=== PATIENT | male | born 1985 | race Caucasian/White ===

== ENCOUNTER 2016-12-31 19:51 | Inpatient (IN) | payer OTHER ==
[~2016-12-31] VITALS: Ht 185.4 cm; Wt 81.6 kg
[2016-12-31 23:47] LABS: *AMPHETAMINE, URINE NEGATIVE (NEGATIVE); *BARBITURATE, URINE NEGATIVE (NEGATIVE); *CANNABINOID, URINE POSITIVE (NEGATIVE); *COCCAINE, URINE NEGATIVE (NEGATIVE); *OPIATE, URINE NEGATIVE (NEGATIVE); *PHENCYCLIDINE SCREEN,URINE NEGATIVE (NEGATIVE)
[2017-01-01 00:11] VITALS: BP 137/106
[2017-01-01] MEDS ORDERED: LOPERAMIDE HCL 2 MG CAPSULE PO PRN ×2 (00:30)
[2017-01-01] MEDS ORDERED: DICYCLOMINE HCL 20 MG TABLET PO PRN (00:30)
[2017-01-01] MEDS ORDERED: ONDANSETRON ODT 4 MG TAB.RAPDIS SL PRN (00:30)
[2017-01-01] MEDS ORDERED: MAG HYDROX/AL HYDROX/SIMETH 30 ML LIQUID UDC PO PRN (00:30)
[2017-01-01] MEDS ORDERED: ACETAMINOPHEN 325 MG TABLET PO PRN (00:30)
[2017-01-01] MEDS ORDERED: LORAZEPAM 2 MG/1 ML VIAL IM PRN (00:30)
[2017-01-01] MEDS ORDERED: LORAZEPAM 1 MG TABLET PO PRN ×2 (00:30)
[2017-01-01] MEDS ORDERED: THIAMINE HCL 200 MG/2 ML VIAL IM ONE (00:30)
[2017-01-01] MEDS ORDERED: MAGNESIUM HYDROXIDE 30 ML LIQUID UDC PO PRN (00:30)
[2017-01-01] MEDS ORDERED: INSU3INS6 SQ (00:48)
[2017-01-01] MEDS ORDERED: VARE1TAB PO (00:48)
[2017-01-01] MEDS ORDERED: VARE1TAB21 PO (00:48)
[2017-01-01] MEDS ORDERED: DEXTROSE 50% 50 ML DISP.SYRIN IV PRN (01:00)
[2017-01-01] MEDS ORDERED: LORAZEPAM 1 MG TABLET ONE (01:05)
[2017-01-01] MEDS ORDERED: THIAMINE HCL 200 MG/2 ML VIAL ONE (01:07)
[2017-01-01 02:06] LABS: ALBUMIN 3.3 g/dL (3.4-5.0); BILIRUBIN,TOTAL 0.4 mg/dL (0.2-1.0); CALCIUM 8.1 mg/dL (8.5-10.1); CREATININE 0.9 mg/dL (0.6-1.3); MAGNESIUM 1.6 mg/dL (1.8-2.4); POTASSIUM 3.6 mmol/L (3.5-5.1); TOTAL PROTEIN, SERUM 6.3 g/dL (6.4-8.2)
[2017-01-01 02:11] LABS: BASOPHILS # (AUTO) 0.1 K/uL (0.0-0.2); BASOPHILS % (AUTO) 1.2 % (0.0-2.0); EOSINOPHILS # (AUTO) 0.1 K/uL (0.0-0.7); EOSINOPHILS % (AUTO) 1.6 % (0.0-7.0); HEMATOCRIT 41.1 % (40.0-50.0); HEMOGLOBIN 14.5 g/dL (14.0-18.0); LYMPHOCYTES # (AUTO) 2.6 K/uL (0.8-4.8); MEAN CORPUSCULAR HEMOGLOBIN 36.3 uug (27.0-31.0); MEAN CORPUSCULAR HGB CONC 35 g/dL (32.0-37.0); MONOCYTES # (AUTO) 0.4 K/uL (0.1-1.30); MONOCYTES % (AUTO) 8.4 % (0.0-11.0); NEUTROPHILS # (AUTO) 2.1 K/uL (1.8-8.9); NEUTROPHILS % (AUTO) 39.8 % (38.5-71.5); PLATELET COUNT (AUTO) 222 K/uL (150-450); RED BLOOD CELL COUNT(AUTO) 3.99 MIL/uL (4.70-6.10); RED CELL DISTRIBUTION WIDTH 12.6 % (11.5-14.5); WHITE BLOOD COUNT (AUTO) 5.3 K/uL (4.0-11.2)
[2017-01-01 02:15] LABS: HIV-1 p24 ANTIGEN NON REACTIVE (NONREACTIVE); HIV-1/2 ANTIBODY NON REACTIVE (NONREACTIVE)
[2017-01-01 02:16] LABS: THYROID STIMULATING HORMONE 0.401 mIU/mL (0.358-3.740)
[2017-01-01 04:26] VITALS: BP 143/99
[2017-01-01] MEDS ORDERED: MAGNESIUM OXIDE 400 MG TABLET PO ONE (06:00)
[2017-01-01] MEDS: CLONIDINE HCL 0.1 MG TABLET PO PRN (08:24)
[2017-01-01] MEDS: BLOOD SUGAR DIAGNOSTIC 1 EACH STRIP VI SCH ×4 (08:24→21:00)
[2017-01-01] MEDS: MULTIVITAMINS,THERAPEUTIC TABLET PO SCH (08:24)
[2017-01-01] MEDS: THIAMINE HCL 100 MG TABLET PO SCH (08:24)
[2017-01-01] MEDS: FOLIC ACID 1 MG TABLET PO SCH (08:24)
[2017-01-01] MEDS: INSULIN REGULAR, HUMAN 300 UNIT/3 ML VIAL SQ PRN ×3 (08:28→16:22)
[2017-01-01 08:30] VITALS: BP 125/93
[2017-01-01 12:00] VITALS: BP 137/96
[2017-01-01] MEDS: LORAZEPAM 1 MG TABLET PO SCH ×3 (12:16→21:58)
[2017-01-01] MEDS: PAROXETINE HCL 20 MG TABLET PO SCH (12:16)
[2017-01-01] MEDS: GABAPENTIN 300 MG CAPSULE PO SCH ×2 (14:46→21:58)
[2017-01-01 16:00] VITALS: BP 127/90
[2017-01-01 20:00] VITALS: BP 147/93
[2017-01-01] MEDS ORDERED: INSULIN DETEMIR 300 UNIT/3 ML CARTRIDGE SQ SCH (21:00)
[2017-01-01] MEDS: HYDROXYZINE PAMOATE 25 MG CAPSULE PO PRN (21:58)
[2017-01-01] MEDS: INSULIN REGULAR, HUMAN 300 UNITS/3 ML VIAL SQ PRN (22:11)
[2017-01-02] VITALS: BP 118/78
[2017-01-02 04:00] VITALS: BP 124/82
[2017-01-02 06:07] LABS: HEPATITIS B CORE AB, IgM Negative (Negative); HEPATITIS B SURFACE AG Negative (Negative)
[2017-01-02 06:57] LABS: ALBUMIN 3.3 g/dL (3.4-5.0); BILIRUBIN,DIRECT 0.3 mg/dL (0.0-0.2); CALCIUM 9.1 mg/dL (8.5-10.1); MAGNESIUM 1.6 mg/dL (1.8-2.4); PHOSPHOROUS 4.2 mg/dL (2.5-4.9); POTASSIUM 4.3 mmol/L (3.5-5.1); TOTAL PROTEIN, SERUM 6.5 g/dL (6.4-8.2)
[2017-01-02 08:00] VITALS: BP 136/94
[2017-01-02] MEDS: INSULIN REGULAR, HUMAN 300 UNIT/3 ML VIAL SQ PRN ×3 (08:11→16:36)
[2017-01-02] MEDS: FOLIC ACID 1 MG TABLET PO SCH (08:13)
[2017-01-02] MEDS: THIAMINE HCL 100 MG TABLET PO SCH (08:13)
[2017-01-02] MEDS: GABAPENTIN 300 MG CAPSULE PO SCH ×3 (08:13→20:57)
[2017-01-02] MEDS: MULTIVITAMINS,THERAPEUTIC TABLET PO SCH (08:13)
[2017-01-02] MEDS: PAROXETINE HCL 20 MG TABLET PO SCH (08:13)
[2017-01-02] MEDS: LORAZEPAM 1 MG TABLET PO SCH ×3 (08:13→20:56)
[2017-01-02] MEDS: BLOOD SUGAR DIAGNOSTIC 1 EACH STRIP VI SCH ×4 (08:22→21:08)
[2017-01-02] MEDS ORDERED: TUBERCULIN,PURIF.PROT.DERIV. 5 TU/0.1 ML TEST ID ONE (09:00)
[2017-01-02 12:17] VITALS: BP 130/92
[2017-01-02] MEDS ORDERED: MAGNESIUM OXIDE 400 MG TABLET PO ONE (14:30)
[2017-01-02 16:59] VITALS: BP 165/101
[2017-01-02] MEDS: CLONIDINE HCL 0.1 MG TABLET PO PRN (17:14)
[2017-01-02] MEDS: HYDROXYZINE PAMOATE 25 MG CAPSULE PO PRN (17:18)
[2017-01-02 20:00] VITALS: BP 113/87
[2017-01-02] MEDS ORDERED: INSULIN DETEMIR 300 UNIT/3 ML CARTRIDGE SQ SCH (21:00)
[2017-01-02] MEDS: INSULIN REGULAR, HUMAN 300 UNITS/3 ML VIAL SQ PRN (21:10)
[2017-01-03] VITALS: BP 120/75
[2017-01-03 04:00] VITALS: BP 130/84
[2017-01-03 08:00] LABS: CALCIUM 9.4 mg/dL (8.5-10.1); CREATININE 1.1 mg/dL (0.6-1.3); MAGNESIUM 1.8 mg/dL (1.8-2.4); POTASSIUM 5.3 mmol/L (3.5-5.1)
[2017-01-03] MEDS: INSULIN REGULAR, HUMAN 300 UNIT/3 ML VIAL SQ PRN ×2 (08:18→17:16)
[2017-01-03] MEDS: FOLIC ACID 1 MG TABLET PO SCH (08:20)
[2017-01-03] MEDS: GABAPENTIN 300 MG CAPSULE PO SCH ×3 (08:21→22:12)
[2017-01-03] MEDS: THIAMINE HCL 100 MG TABLET PO SCH (08:21)
[2017-01-03] MEDS: LORAZEPAM 1 MG TABLET PO SCH ×4 (08:21→22:12)
[2017-01-03] MEDS: MULTIVITAMINS,THERAPEUTIC TABLET PO SCH (08:21)
[2017-01-03] MEDS: PAROXETINE HCL 20 MG TABLET PO SCH (08:21)
[2017-01-03] MEDS: BLOOD SUGAR DIAGNOSTIC 1 EACH STRIP VI SCH ×4 (08:24→21:00)
[2017-01-03 08:33] VITALS: BP 126/87
[2017-01-03] MEDS ORDERED: INSULN ASP PRT/INSULIN ASPART 70/30 1000 UNITS/10 ML VIAL SQ PRN (10:45)
[2017-01-03] MEDS: INSULIN DETEMIR 300 UNIT/3 ML CARTRIDGE SQ SCH ×2 (11:12→22:07)
[2017-01-03] MEDS ORDERED: INSULIN REGULAR, HUMAN 300 UNIT/3 ML VIAL SQ PRN (11:30)
[2017-01-03 12:00] VITALS: BP 133/85
[2017-01-03] MEDS ORDERED: INSULIN REGULAR, HUMAN 300 UNIT/3 ML VIAL SQ ONE (12:05)
[2017-01-03] MEDS ORDERED: DEXTROSE 50% 50 ML DISP.SYRIN IV PRN (12:15)
[2017-01-03] MEDS: CLONIDINE HCL 0.1 MG TABLET PO PRN (14:35)
[2017-01-03] MEDS: HYDROXYZINE PAMOATE 25 MG CAPSULE PO PRN (14:36)
[2017-01-03 16:44] VITALS: BP 137/86
[2017-01-03 20:00] VITALS: BP 115/89
[2017-01-03] MEDS ORDERED: NICOTINE 7 MG/24HR PATCH TD ONE (21:50)
[2017-01-03] MEDS ORDERED: NICOTINE 14 MG/24HR PATCH TD ONE (21:51)
[2017-01-03] MEDS: INSULIN REGULAR, HUMAN 300 UNITS/3 ML VIAL SQ PRN (22:10)
[2017-01-03] MEDS: NICOTINE 14 MG/24HR PATCH TD SCH (22:11)
[2017-01-04 04:00] VITALS: BP 117/78
[2017-01-04] MEDS ORDERED: INSULIN REGULAR, HUMAN 300 UNIT/3 ML VIAL SQ PRN (07:30)
[2017-01-04 08:00] VITALS: BP 123/86
[2017-01-04 08:17] LABS: POTASSIUM 4.5 mmol/L (3.5-5.1)
[2017-01-04] MEDS: INSULIN REGULAR, HUMAN 300 UNIT/3 ML VIAL SQ PRN ×3 (08:35→16:48)
[2017-01-04] MEDS: INSULIN DETEMIR 300 UNIT/3 ML CARTRIDGE SQ SCH (08:37)
[2017-01-04] MEDS: LORAZEPAM 1 MG TABLET PO SCH ×3 (08:37→20:52)
[2017-01-04] MEDS: FOLIC ACID 1 MG TABLET PO SCH (08:38)
[2017-01-04] MEDS: MULTIVITAMINS,THERAPEUTIC TABLET PO SCH (08:38)
[2017-01-04] MEDS: PAROXETINE HCL 20 MG TABLET PO SCH (08:38)
[2017-01-04] MEDS: THIAMINE HCL 100 MG TABLET PO SCH (08:38)
[2017-01-04] MEDS: GABAPENTIN 300 MG CAPSULE PO SCH ×3 (08:38→20:53)
[2017-01-04] MEDS: BLOOD SUGAR DIAGNOSTIC 1 EACH STRIP VI SCH ×4 (08:39→20:45)
[2017-01-04] MEDS: NICOTINE 14 MG/24HR PATCH TD SCH (08:39)
[2017-01-04 12:00] VITALS: BP 132/86
[2017-01-04 16:00] VITALS: BP 140/91
[2017-01-04 20:00] VITALS: BP 143/93
[2017-01-04] MEDS: INSULIN REGULAR, HUMAN 300 UNITS/3 ML VIAL SQ PRN (20:48)
[2017-01-04] MEDS ORDERED: INSULIN DETEMIR 300 UNIT/3 ML CARTRIDGE SQ SCH (21:00)
[2017-01-04] MEDS: diphenhydrAMINE 50 MG CAPSULE PO PRN (22:23)
[2017-01-04] MEDS ORDERED: INSULIN REGULAR, HUMAN 300 UNIT/3 ML VIAL SQ ONE (23:00)
[2017-01-04] MEDS ORDERED: BLOOD SUGAR DIAGNOSTIC 1 EACH STRIP VI ONE (23:00)
[2017-01-05] VITALS: BP 121/75
[2017-01-05 04:00] VITALS: BP 131/83
[2017-01-05 07:47] LABS: ALBUMIN 3.7 g/dL (3.4-5.0); BILIRUBIN,DIRECT 0.1 mg/dL (0.0-0.2); BILIRUBIN,TOTAL 0.4 mg/dL (0.2-1.0); CALCIUM 9.4 mg/dL (8.5-10.1); MAGNESIUM 1.9 mg/dL (1.8-2.4); PHOSPHOROUS 4.8 mg/dL (2.5-4.9); POTASSIUM 4.5 mmol/L (3.5-5.1); TOTAL PROTEIN, SERUM 7.3 g/dL (6.4-8.2)
[2017-01-05] MEDS: BLOOD SUGAR DIAGNOSTIC 1 EACH STRIP VI SCH ×4 (07:49→21:46)
[2017-01-05 08:28] VITALS: BP 135/82
[2017-01-05] MEDS: MULTIVITAMINS,THERAPEUTIC TABLET PO SCH (08:29)
[2017-01-05] MEDS: LORAZEPAM 1 MG TABLET PO SCH ×2 (08:29→21:41)
[2017-01-05] MEDS: GABAPENTIN 300 MG CAPSULE PO SCH ×3 (08:29→21:42)
[2017-01-05] MEDS: THIAMINE HCL 100 MG TABLET PO SCH (08:29)
[2017-01-05] MEDS: PAROXETINE HCL 20 MG TABLET PO SCH (08:29)
[2017-01-05] MEDS: FOLIC ACID 1 MG TABLET PO SCH (08:29)
[2017-01-05] MEDS: INSULIN REGULAR, HUMAN 300 UNIT/3 ML VIAL SQ PRN ×3 (08:35→17:20)
[2017-01-05] MEDS: NICOTINE 14 MG/24HR PATCH TD SCH (08:37)
[2017-01-05] MEDS ORDERED: INSULIN DETEMIR 300 UNIT/3 ML CARTRIDGE SQ SCH (09:00)
[2017-01-05] MEDS: INSULIN REGULAR, HUMAN 300 UNIT/3 ML VIAL SQ SCH ×2 (12:04→17:20)
[2017-01-05] MEDS: HYDROXYZINE PAMOATE 25 MG CAPSULE PO PRN (12:09)
[2017-01-05 12:55] VITALS: BP 149/87
[2017-01-05] MEDS: CLONIDINE HCL 0.1 MG TABLET PO PRN (15:35)
[2017-01-05 17:34] VITALS: BP 136/85
[2017-01-05] MEDS ORDERED: BLOOD SUGAR DIAGNOSTIC 1 EACH STRIP VI ONE (18:50)
[2017-01-05 20:00] VITALS: BP 121/86
[2017-01-05] MEDS: diphenhydrAMINE 50 MG CAPSULE PO PRN (21:43)
[2017-01-05] MEDS: INSULIN REGULAR, HUMAN 300 UNITS/3 ML VIAL SQ PRN (21:50)
[2017-01-05] MEDS: INSULIN DETEMIR 300 UNIT/3 ML CARTRIDGE SQ SCH (21:53)
[2017-01-06] VITALS: BP 124/69
[2017-01-06 04:00] VITALS: BP 116/79
[2017-01-06 08:00] VITALS: BP 116/81
[2017-01-06] MEDS: INSULIN REGULAR, HUMAN 300 UNIT/3 ML VIAL SQ SCH ×3 (08:31→17:29)
[2017-01-06] MEDS: BLOOD SUGAR DIAGNOSTIC 1 EACH STRIP VI SCH ×4 (08:32→21:18)
[2017-01-06] MEDS: INSULIN REGULAR, HUMAN 300 UNIT/3 ML VIAL SQ PRN ×2 (08:34→21:26)
[2017-01-06] MEDS: INSULIN DETEMIR 300 UNIT/3 ML CARTRIDGE SQ SCH ×2 (08:35→21:28)
[2017-01-06] MEDS: NICOTINE 14 MG/24HR PATCH TD SCH (08:36)
[2017-01-06] MEDS: THIAMINE HCL 100 MG TABLET PO SCH (08:36)
[2017-01-06] MEDS: GABAPENTIN 300 MG CAPSULE PO SCH ×3 (08:36→21:15)
[2017-01-06] MEDS: FOLIC ACID 1 MG TABLET PO SCH (08:36)
[2017-01-06] MEDS: PAROXETINE HCL 20 MG TABLET PO SCH (08:36)
[2017-01-06] MEDS: MULTIVITAMINS,THERAPEUTIC TABLET PO SCH (08:36)
[2017-01-06] MEDS ORDERED: BLOOD SUGAR DIAGNOSTIC 1 EACH STRIP VI ONE ×3 (10:30→19:30)
[2017-01-06 12:00] VITALS: BP 137/96
[2017-01-06 16:00] VITALS: BP 133/92
[2017-01-06] MEDS ORDERED: INSULIN REGULAR, HUMAN 300 UNIT/3 ML VIAL SQ PRN ×2 (17:00→21:00)
[2017-01-06] MEDS ORDERED: DEXTROSE 50% 50 ML DISP.SYRIN IV PRN (17:00)
[2017-01-06] MEDS: HYDROXYZINE PAMOATE 25 MG CAPSULE PO PRN (17:55)
[2017-01-06 20:00] VITALS: BP 131/95
[2017-01-06] MEDS ORDERED: INSULIN REGULAR, HUMAN 300 UNIT/3 ML VIAL SQ ONE (20:00)
[2017-01-06] MEDS ORDERED: BLOOD SUGAR DIAGNOSTIC 1 EACH STRIP VI SCH (21:00)
[2017-01-07] VITALS: BP 127/82
[2017-01-07] MEDS ORDERED: INSULIN REGULAR, HUMAN 300 UNIT/3 ML VIAL SQ SCH (07:30)
[2017-01-07 08:00] VITALS: BP_SYST 114; BP_SYST 154; BP_DIAS 76; BP_DIAS 77
[2017-01-07] MEDS: FOLIC ACID 1 MG TABLET PO SCH (08:15)
[2017-01-07] MEDS: MULTIVITAMINS,THERAPEUTIC TABLET PO SCH (08:15)
[2017-01-07] MEDS: GABAPENTIN 300 MG CAPSULE PO SCH ×3 (08:15→20:26)
[2017-01-07] MEDS: THIAMINE HCL 100 MG TABLET PO SCH (08:15)
[2017-01-07] MEDS: PAROXETINE HCL 20 MG TABLET PO SCH (08:15)
[2017-01-07] MEDS: NICOTINE 14 MG/24HR PATCH TD SCH (08:15)
[2017-01-07] MEDS: BLOOD SUGAR DIAGNOSTIC 1 EACH STRIP VI SCH ×7 (08:19→20:25)
[2017-01-07] MEDS: INSULIN REGULAR, HUMAN 300 UNIT/3 ML VIAL SQ SCH ×3 (08:30→16:36)
[2017-01-07] MEDS: INSULIN DETEMIR 300 UNIT/3 ML CARTRIDGE SQ SCH ×2 (08:32→20:47)
[2017-01-07 08:43] LABS: BASOPHILS # (AUTO) 0.1 K/uL (0.0-8.0); BASOPHILS % (AUTO) 0.8 % (0.0-2.0); EOSINOPHILS # (AUTO) 0.3 K/uL (0.0-0.7); EOSINOPHILS % (AUTO) 3.3 % (0.0-7.0); HEMATOCRIT 48.6 % (36.7-47.1); LYMPHOCYTES % (AUTO) 35.5 % (20.5-51.5); MEAN CORPUSCULAR HEMOGLOBIN 36.3 uug (23.8-33.4); MEAN CORPUSCULAR HGB CONC 35 g/dL (32.5-36.3); MEAN CORPUSCULAR VOLUME 103.7 fL (73.0-96.2); MONOCYTES # (AUTO) 0.8 K/uL (2.0-10.0); MONOCYTES % (AUTO) 9.4 % (0.0-11.0); NEUTROPHILS # (AUTO) 4.4 K/uL (1.8-8.9); PLATELET COUNT (AUTO) 272 K/uL (152-348); RED BLOOD CELL COUNT(AUTO) 4.69 MIL/uL (4.06-5.63); RED CELL DISTRIBUTION WIDTH 12.6 % (12.1-16.2); WHITE BLOOD COUNT (AUTO) 8.6 K/uL (3.6-10.2)
[2017-01-07 09:03] LABS: PHOSPHOROUS 5.8 mg/dL (2.5-4.9)
[2017-01-07 12:00] VITALS: BP 134/81
[2017-01-07] MEDS: INSULIN REGULAR, HUMAN 300 UNIT/3 ML VIAL SQ PRN ×3 (13:46→20:48)
[2017-01-07 14:00] LABS: *AMPHETAMINE, URINE NEGATIVE (NEGATIVE); *BARBITURATE, URINE NEGATIVE (NEGATIVE); *CANNABINOID, URINE NEGATIVE (NEGATIVE); *COCCAINE, URINE NEGATIVE (NEGATIVE); *OPIATE, URINE NEGATIVE (NEGATIVE); *PHENCYCLIDINE SCREEN,URINE NEGATIVE (NEGATIVE)
[2017-01-07] MEDS ORDERED: Blood Sugar Diagnostic VI (15:09)
[2017-01-07] MEDS ORDERED: Nicotine TD (15:09)
[2017-01-07] MEDS ORDERED: INSU100V28 SQ (15:09)
[2017-01-07] MEDS ORDERED: Gabapentin PO ×2 (15:09)
[2017-01-07] MEDS ORDERED: Paroxetine Hcl PO (15:09)
[2017-01-07] MEDS ORDERED: INSU100I19 SQ (15:09)
[2017-01-07 16:00] VITALS: BP 148/94
[2017-01-07 20:00] VITALS: BP 150/107
[2017-01-07] MEDS: CLONIDINE HCL 0.1 MG TABLET PO PRN (20:26)
[2017-01-08] VITALS: BP 128/85
[2017-01-08 04:00] VITALS: BP 109/68
[2017-01-08] MEDS: HYDROXYZINE PAMOATE 25 MG CAPSULE PO PRN (04:59)
[2017-01-08] MEDS: BLOOD SUGAR DIAGNOSTIC 1 EACH STRIP VI SCH ×2 (07:40→09:12)
[2017-01-08] MEDS: INSULIN REGULAR, HUMAN 300 UNIT/3 ML VIAL SQ SCH (07:42)
[2017-01-08 08:07] VITALS: BP 121/68
[2017-01-08] MEDS: THIAMINE HCL 100 MG TABLET PO SCH (08:09)
[2017-01-08] MEDS: MULTIVITAMINS,THERAPEUTIC TABLET PO SCH (08:09)
[2017-01-08] MEDS: PAROXETINE HCL 20 MG TABLET PO SCH (08:09)
[2017-01-08] MEDS: NICOTINE 14 MG/24HR PATCH TD SCH (08:09)
[2017-01-08] MEDS: GABAPENTIN 300 MG CAPSULE PO SCH (08:09)
[2017-01-08] MEDS: FOLIC ACID 1 MG TABLET PO SCH (08:09)
[2017-01-08] MEDS: INSULIN DETEMIR 300 UNIT/3 ML CARTRIDGE SQ SCH (09:14)
[2017-01-09 06:06] LABS: *BENZODIAZEPINES Positive (.); *CANNABINOID (THC) Negative (Cutoff=10); *NORDIAZEPAM Negative (Cutoff=300); *OXAZEPAM Negative (Cutoff=300)
== END 2017-01-08 10:05 | disposition other institution (70) | DRG 895 ==
LOC: SRC 22:11
PROVIDERS: ADMIT Internal Medicine; ATTEND Internal Medicine
PROC: HZ2ZZZZ Detoxification Services for Substance Abuse Treatment (ICD-10-PCS; principal; 2016-12-31)
PROC: HZ31ZZZ Individual Counseling for Substance Abuse Treatment, Behavioral (ICD-10-PCS; 2017-01-01)
PROC: HZ41ZZZ Group Counseling for Substance Abuse Treatment, Behavioral (ICD-10-PCS; 2017-01-02)
DX: F10.230 Alcohol dependence with withdrawal, uncomplicated (principal); E87.3 Alkalosis; K70.10 Alcoholic hepatitis without ascites; F13.230 Sedative, hypnotic or anxiolytic dependence with withdrawal, uncomplicated; Y90.3 Blood alcohol level of 60-79 mg/100 ml; J45.20 Mild intermittent asthma, uncomplicated; F41.9 Anxiety disorder, unspecified; E83.42 Hypomagnesemia; Z91.11 Patient's noncompliance with dietary regimen; E10.65 Type 1 diabetes mellitus with hyperglycemia; Z79.4 Long term (current) use of insulin; Z91.19 Patient's noncompliance with other medical treatment and regimen; F17.210 Nicotine dependence, cigarettes, uncomplicated; E86.0 Dehydration
CPT/HCPCS: 36415; 70030-TC; 80307; 80346; 80349; 83690; 83735; 84100; 84443; 85025; 86580; 86705; 86803; 87340; 87806; A9150; G6040-TC; J1815; J3411; Q0163

== ENCOUNTER 2017-04-19 14:12 | Inpatient (IN) | payer OTHER ==
[~2017-04-19] VITALS: Ht 185.4 cm; Wt 86.2 kg
[~2017-04-19 14:12] MED LIST: Blood Sugar Diagnostic VI; Gabapentin PO; INSU100I19 SQ; INSU100V28 SQ; Nicotine TD; Paroxetine Hcl PO
[2017-04-19] MEDS ORDERED: LORAZEPAM 1 MG TABLET PO PRN ×2 (18:45)
[2017-04-19] MEDS ORDERED: MIRALAX 17 GM POWD.PACK PO PRN (18:45)
[2017-04-19] MEDS ORDERED: DEXTROSE 50% 50 ML DISP.SYRIN IV PRN (18:45)
[2017-04-19] MEDS ORDERED: LOPERAMIDE HCL 2 MG CAPSULE PO PRN ×2 (18:45)
[2017-04-19] MEDS ORDERED: DICYCLOMINE HCL 20 MG TABLET PO PRN (18:45)
[2017-04-19] MEDS ORDERED: CLONIDINE HCL 0.1 MG TABLET PO PRN (18:45)
[2017-04-19] MEDS ORDERED: ONDANSETRON ODT 4 MG TAB.RAPDIS SL PRN (18:45)
[2017-04-19] MEDS ORDERED: IBUPROFEN 400 MG TABLET PO PRN (18:45)
[2017-04-19] MEDS ORDERED: THIAMINE HCL 200 MG/2 ML VIAL IM ONE (18:45)
[2017-04-19] MEDS ORDERED: LORAZEPAM 2 MG/1 ML VIAL IM PRN (18:45)
[2017-04-19] MEDS ORDERED: ONDANSETRON 4 MG/2 ML VIAL IM PRN (18:45)
[2017-04-19] MEDS ORDERED: MAG HYDROX/AL HYDROX/SIMETH 30 ML LIQUID UDC PO PRN (18:45)
[2017-04-19 19:11] LABS: BASOPHILS # (AUTO) 0.1 K/uL (0.0-8.0); BASOPHILS % (AUTO) 0.9 % (0.0-2.0); EOSINOPHILS # (AUTO) 0.1 K/uL (0.0-0.7); EOSINOPHILS % (AUTO) 1.3 % (0.0-7.0); HEMATOCRIT 51.1 % (40-50); HEMOGLOBIN 17.3 G/DL (14.0-18.0); LYMPHOCYTES # (AUTO) 3.9 K/UL (0.8-4.8); MEAN CORPUSCULAR HEMOGLOBIN 33.6 UUG (27.0-31.0); MEAN CORPUSCULAR HGB CONC 34 g/dL (32.0-37.0); MEAN CORPUSCULAR VOLUME 99.2 FL (82.0-92.0); MONOCYTES # (AUTO) 1.1 K/UL (0.1-1.30); MONOCYTES % (AUTO) 13.4 % (0.0-11.0); NEUTROPHILS % (AUTO) 36.4 % (38.5-71.5); PLATELET COUNT (AUTO) 317 K/UL (150-450); RED BLOOD CELL COUNT(AUTO) 5.15 MIL/UL (4.7-6.1); WHITE BLOOD COUNT (AUTO) 8.2 K/UL (4.0-11.2)
[2017-04-19 19:27] LABS: *AMPHETAMINE, URINE NEGATIVE (NEGATIVE); *BARBITURATE, URINE NEGATIVE (NEGATIVE); *CANNABINOID, URINE NEGATIVE (NEGATIVE); *COCCAINE, URINE NEGATIVE (NEGATIVE); *OPIATE, URINE NEGATIVE (NEGATIVE); *PHENCYCLIDINE SCREEN,URINE NEGATIVE (NEGATIVE)
[2017-04-19 19:30] LABS: BILIRUBIN,TOTAL 0.3 mg/dL (0.2-1.0); CREATININE 1.1 mg/dL (0.6-1.3); MAGNESIUM 2.1 mg/dL (1.8-2.4); POTASSIUM 3.3 mmol/L (3.5-5.1); TOTAL PROTEIN, SERUM 8.7 g/dL (6.4-8.2)
--- NOTE | 2017-04-19 19:50 | NUR ---
Pre-Admission Note Patient is a 31-year old, male, seen at intake, AAOx4, no SOB and with slight anxiety noted at this time. Discussed with patient admission policies of the unit. Patient is coherent and able to respond to questions appropriately. Pt is ambulatory with steady gait. Vital signs taken and as follows: VC=687/76, P=102, O2 sat on RA=96%, RR=20, T=98.1. Pt verbalized instructions and teachings regarding disposal of narcotic and other controlled home meds, unit protocols such as taking of vital signs Q4H and handling and disposal of contraband. Will continue with admission upon pts arrival on the unit.
[2017-04-19 20:00] VITALS: BP 117/76
--- NOTE | 2017-04-19 20:00 | NUR ---
Admission Note Pt is a 31 year old male admitted on 04/19/2017 for ETOH/benzo dependence, on the unit at 2000. Allergies to PCN and aspirin, denies any history of seizures. Pt was able to provide urine drug screen. Upon admission, CIWA 8, BP =117/76, P=102, O2 sat on RA=96%, RR=20, T=98.1., weight 190 lb, height 6'01". Pts primary care provider is Dr. Coles at [facility] & reports smoking 0.5 pack of cigarettes/daily. Pt denies being hospitalized within the past 30 days. Pt is able to understand and respond to all questions pertaining to his hospitalization. Substance Abuse History is as Follows: 1. Vodka 2 pints/daily, last intake of 1 pint on 04/19/2017, at this rate for 1-2 months. 2. Librium about 5 pills of 25mg/daily, last intake of about 5 pills of 25mg on 04/19/2017, at this rate for 1-2 months. When pt does not use he experiences s/s: "Anxiety, shaky/tremors, n/v, irritations, clammy/sweaty skin, nervousness". Pt reports he relapsed 2 weeks after discharge [facility] on 01/08/2017. Pt longest sober period was for "5 1/2 years " in [id number]. Treatment history: Detox/Rehab for 12 months in [facility] in 2009 [facility] from 12/31/2016 - 01/08/2017 PMH: DM I, HTN, Depression, Anxiety and Asthma. Pt brought medications from home, reconciled. Pt is alert/oriented x4, PERRLA. Pt presents with anxiety, reports chills throughout, skin clammy, visible tremors, noted with sweat, respirations even/unlabored, denies SOB/chest pain, bowel sounds active x4, abdomen soft. Skin is intact, no open wounds noted. Pt denies SI/HI. Education provided, education pamphlets provided and left at bedside, Pt oriented to room and encouraged to notify staff with any concerns. Safety measures in place, call light within reach, side rails up x2, bed locked and in low position. Will continue to monitor.
--- NOTE | 2017-04-19 20:30 | NUR ---
Vitamin B1 Inj refused by pt, risks/benefits explained x3. Pt continues to refuse.
--- NOTE | 2017-04-19 21:00 | NUR ---
Blood Sugar BS 144 Scheduled Levemir 20units administered as ordered. Humulin R 2 units administered per sliding scale as ordered. Safety measures in place, will continue to monitor.
--- NOTE | 2017-04-19 21:05 | NUR ---
Ativan 2mg x1 administered as ordered. Pt presents with anxiety, restlessness, tremors noted, skin flushed/clammy, lightheadedness, irritation. Safety measures in place, will continue to monitor.
[2017-04-19] MEDS: BLOOD SUGAR DIAGNOSTIC 1 EACH STRIP VI SCH (21:09)
[2017-04-19] MEDS: INSULIN DETEMIR 300 UNIT/3 ML CARTRIDGE SQ SCH (21:25)
[2017-04-19] MEDS: INSULIN REGULAR, HUMAN 300 UNITS/3 ML VIAL SQ PRN (21:26)
[2017-04-19] MEDS ORDERED: LORAZEPAM 1 MG TABLET PO ONE (22:00)
[2017-04-19] MEDS ORDERED: POTASSIUM CHLORIDE 20 MEQ TAB.PRT.SR PO ONE (22:00)
[2017-04-19] MEDS ORDERED: POTASSIUM CHLORIDE 20 MEQ TAB.PRT.SR ONE (22:12)
--- NOTE | 2017-04-19 23:00 | NUR ---
PRN Administration CIWA 10 - pt presents with anxiety, agitation/irritation, headache, lightheadedness. Skin clammy/flushed. Ativan 1mg PRN administered. K 3.3 supplemented with K-Dur 40 MEQ. Safety measures in place. Will continue to monitor.
[2017-04-20] VITALS (7 sets, daily range): BP systolic 109–129; BP diastolic 81–91
--- NOTE | 2017-04-20 | NUR ---
PRN Reassessment CIWA 8 BP 112/86, pulse 95, resp 22, SpO2 98% room air, temp 97.9, reports no pain 0/10 Needs met, safety measures in place. Will continue to monitor.
[2017-04-20] MEDS ORDERED: DISU250T7 PO (01:17)
[2017-04-20] MEDS ORDERED: METO50TA3 PO (01:17)
[2017-04-20] MEDS ORDERED: INSU100V28 (01:22)
[2017-04-20] MEDS ORDERED: CHLO25CA22 PO (01:22)
--- NOTE | 2017-04-20 04:00 | NUR ---
Vital Signs BP 128/81, pulse 96, resp 16, SpO2 96% room air, temp 97.6, no pain 0/10 CIWA deferred d/t pt sleeping to assess while pt is awake as ordered. Safety measures in place, will continue to monitor.
--- NOTE | 2017-04-20 07:00 | NUR ---
End of Shift Pt is a 31 year old male admitted for ETOH/Benzo dependence. Pt reported consuming Vodka 2 pints/daily, last intake of 1 pint on 04/19/2017, at this rate for 1-2 months and Librium about 5 pills of 25mg/daily, last intake of about 5 pills of 25mg on 04/19/2017, at this rate for 1-2 months. PMH: DM I, HTN, Depression, Anxiety and Asthma. Reports allergies to PCN and Aspirin, fall/seizure precautions, diabetic diet and full code. During shift, BS 144, Scheduled Levemir 20units administered as ordered with Humulin R 2 units administered per sliding scale as ordered. Ativan 2mg x1 administered as ordered, along with Ativan 1mg PRN for CIWA 10. Score decreased to CIWA 8 at 0000. K 3.3 supplemented with K-Dur 40 MEQ. Vitamin B1 Inj refused by pt, risks/benefits explained x3. Pt slept for 6 hours, intake of 1300 ml PO, voids x2 and stool x0. Safety measures in place, call light within reach, side rails up x2, bed locked and in low position. Endorsed to day shift nurse.
[2017-04-20] MEDS: BLOOD SUGAR DIAGNOSTIC 1 EACH STRIP VI SCH ×4 (07:36→21:32)
[2017-04-20] MEDS: INSULIN REGULAR, HUMAN 300 UNIT/3 ML VIAL SQ PRN ×3 (07:46→17:13)
[2017-04-20] MEDS ORDERED: TUBERCULIN,PURIF.PROT.DERIV. 5 TU/0.1 ML TEST ID ONE (09:00)
[2017-04-20] MEDS: INSULIN DETEMIR 300 UNIT/3 ML CARTRIDGE SQ SCH ×2 (09:21→21:31)
[2017-04-20] MEDS: MULTIVITAMINS,THERAPEUTIC TABLET PO SCH (09:23)
[2017-04-20] MEDS: LORAZEPAM 1 MG TABLET PO SCH ×4 (09:23→21:26)
[2017-04-20] MEDS: FOLIC ACID 1 MG TABLET PO SCH (09:23)
[2017-04-20] MEDS: THIAMINE HCL 100 MG TABLET PO SCH (09:23)
[2017-04-20] MEDS: PAROXETINE HCL 20 MG TABLET PO SCH (09:37)
[2017-04-20] MEDS: GABAPENTIN 300 MG CAPSULE PO SCH ×2 (15:10→21:25)
--- NOTE | 2017-04-20 19:23 | NUR ---
End of Shift Traffic Control Officer provided report to night nurse with no further comments, questions or concerns voiced. Pt is a 31 year old male admitted on 04/19/17 for ETOH and Benzodiazepine medical detoxification. Pt is full code, Allergies to PCN and Aspirin. Pt is on a diabetic diet. With a PMH of DM 1, anxiety, depression, HTN and asthma, no reported history of seizures. Pt placed on universal, fall and seizure precautions. BS were 265, 225 and 190 with coverage provided according to MD order. Skin is intact. Last CIWA of 5 recorded at 1600. Pt did not receive any PRN on this shift. Pt is A/O x4, able to make his needs known. Calm, cooperative and pleasant on approach. Normal affect with congruent mood. No s/s of distress noted. Bed in low position, wheels locked, side rails up x2, with call light within reach.
--- NOTE | 2017-04-20 19:24 | NUR ---
Start of shift note Received report from day shift nurse. Pt is a 31 yo male, A+Ox4, presenting to [facility] for ETOH/Benzo dependence. Pt has Allergies to PCN and Aspirin. Pt is on Fall and Seizure precautions. Pt has HX of DM, HTN, Asthma, Anxiety, and Depression. Pt is on 5 day Ativan taper, tolerated well. No s/s of distress noted at this time. Respirations even and unlabored. Will continue to monitor. Addendum: 04/20/17 at 2025 by IESHA NEWSOME LVN Pt is on Full Code and Diabetic diet.
--- NOTE | 2017-04-20 21:25 | NUR ---
DEBBY Mcpherson Reassessment Medication effective. Pt is resting well in bed. No s/s of ASE/distress noted at this time. Respirations even and unlabored. Will continue to monitor. Addendum: 04/22/17 at 0107 by IESHA NEWSOME LVN Error, incorrect time
[2017-04-20] MEDS: METOPROLOL TARTRATE 50 MG TABLET PO SCH (21:26)
[2017-04-20] MEDS: INSULIN REGULAR, HUMAN 300 UNITS/3 ML VIAL SQ PRN (21:32)
[2017-04-20] MEDS: diphenhydrAMINE 50 MG CAPSULE PO PRN (21:42)
--- NOTE | 2017-04-20 21:42 | NUR ---
PRN Benadryl Pt c/o inability to sleep and requested for PRN Benadryl. Medication given and tolerated well. Will reassess within 1 HR. Will continue to monitor.
--- NOTE | 2017-04-20 22:40 | NUR ---
PRN Benadryl Reassessment Medication effective. Pt is resting well in bed. No s/s of ASE/distress noted at this time. Respirations even and unlabored. Will continue to monitor.
[2017-04-21 00:16] VITALS: BP 110/77
[2017-04-21 04:11] VITALS: BP 109/74
--- NOTE | 2017-04-21 07:00 | NUR ---
End of shift note Pt is a 31 yo male, A+Ox4, presenting to [facility] for ETOH/Benzo dependence. Pt has Allergies to PCN and Aspirin. Pt is on Fall and Seizure precautions. Pt has HX of DM, HTN, Asthma, Anxiety, and Depression. Pt is on 5 day Ativan taper, tolerated well. Pt was given PRN Benadryl @2142. Pt slept for a total of 9 HRS. Last CIWA: 3 @0400. No s/s of distress noted at this time. Respirations even and unlabored. Will endorse to day shift nurse.
[2017-04-21] MEDS: BLOOD SUGAR DIAGNOSTIC 1 EACH STRIP VI SCH ×4 (07:58→20:17)
[2017-04-21 08:00] VITALS: BP 113/82
[2017-04-21 08:02] LABS: CREATININE 0.9 mg/dL (0.6-1.3); MAGNESIUM 1.6 mg/dL (1.8-2.4); PHOSPHOROUS 4.7 mg/dL (2.5-4.9)
--- NOTE | 2017-04-21 08:07 | NUR ---
START OF SHIFT: RECEIVED PT A/O X 4. HE PRESENTS WITH ANXIOUS MOOD AND CONGRUENT AFFECT. HE REPORTS SOME MILD ANXIETY AND STATES DETOX MEDS ARE EFFECTIVE. ATIVAN TAPER IN PROGRESS. CIWA 2. ACCU CHECK DONE BG 224. ENCOURAGED PT TO INCREASE FLUIDS TO ASSIST IN FACILITATING DETOX PROCESS. ENCOURAGED GROUP ATTENDANCE. WILL ADMINISTER SCHEDULED MEDS AND SLIDING SCALE ORDERED. WILL CONTINUE TO MONITOR AND OFFER SAFE AND SUPPORTIVE ENVIRONMENT.
[2017-04-21] MEDS: INSULIN REGULAR, HUMAN 300 UNIT/3 ML VIAL SQ PRN ×3 (08:25→17:14)
[2017-04-21] MEDS: INSULIN DETEMIR 300 UNIT/3 ML CARTRIDGE SQ SCH ×2 (08:25→20:24)
[2017-04-21] MEDS: FOLIC ACID 1 MG TABLET PO SCH (08:29)
[2017-04-21] MEDS: PAROXETINE HCL 20 MG TABLET PO SCH (08:29)
[2017-04-21] MEDS: THIAMINE HCL 100 MG TABLET PO SCH (08:29)
[2017-04-21] MEDS: MULTIVITAMINS,THERAPEUTIC TABLET PO SCH (08:29)
[2017-04-21] MEDS: GABAPENTIN 300 MG CAPSULE PO SCH ×3 (08:29→20:11)
[2017-04-21] MEDS: LORAZEPAM 1 MG TABLET PO SCH ×3 (08:30→20:11)
[2017-04-21] MEDS: METOPROLOL TARTRATE 50 MG TABLET PO SCH ×2 (08:30→20:11)
--- NOTE | 2017-04-21 10:31 | NUR ---
Therapist prompted client about group times. Client stated he would attend all groups.
[2017-04-21 12:00] VITALS: BP 117/78
[2017-04-21] MEDS ORDERED: POTASSIUM CHLORIDE 20 MEQ TAB.PRT.SR PO ONE ×3 (12:30→16:00)
[2017-04-21 13:10] LABS: HEPATITIS B SURFACE AG Negative (Negative)
--- NOTE | 2017-04-21 15:47 | NUR ---
PRN MOTRIN GIVEN FOR RPORTED TOOTHACHE 03/29. WILL MONITOR EFFECTIVENESS.
[2017-04-21 16:00] VITALS: BP 108/69
--- NOTE | 2017-04-21 16:45 | NUR ---
PT STATES MOTRIN WAS MILDLY EFFECTIVE. NEW ORDER FOR LIDOCAINE VISCOUS TO APPLY TOPICALLY.
[2017-04-21] MEDS ORDERED: KETOROLAC TROMETHAMINE 30 MG INJ IM ONE (18:15)
--- NOTE | 2017-04-21 18:38 | NUR ---
END OF SHIFT: PT CONTINUES ON ATIVAN TAPER. ACCU CHECKS AC AND HS. LAST BG 267. 9 UNITS GIVEN ORDERED PER SLIDING SCALE. HE C/O MILD ANXIETY INTERMITTENTLY AND STATES DETOX MEDS ARE EFFECTIVE.LAST CIWA 3. HE C/O TOOTHACHE THIS AFTERNOON TO LOWER RT MOLAR. MOTRIN AND LIDOCAINE VISCUS ONLY MILDLY EFFECTIVE. ONE TIME ORDER FOR TORADOL IM PER MD ADMINISTERED ORDERED.NIGHT NURSE TO MONITOR EFFECTIVENESS OF TORADOL. WILL PASS SHIFT REPORT TO NIGHT NURSE.
[2017-04-21] MEDS ORDERED: IBUPROFEN 400 MG TABLET PO PRN (18:45)
[2017-04-21 20:07] VITALS: BP 119/72
[2017-04-21] MEDS: INSULIN REGULAR, HUMAN 300 UNITS/3 ML VIAL SQ PRN (20:25)
[2017-04-21] MEDS: diphenhydrAMINE 50 MG CAPSULE PO PRN (20:29)
--- NOTE | 2017-04-21 20:29 | NUR ---
PRN Benadryl Pt c/o inability to sleep and requested for PRN Benadryl. Medication given and tolerated well. Will reassess within 1 HR. Will continue to monitor.
[2017-04-21] MEDS: IBUPROFEN 800 MG TABLET PO PRN (23:12)
--- NOTE | 2017-04-21 23:12 | NUR ---
PRN Motrin Pt c/o toothache 03/29 and requested for PRN Motrin. Medication given and tolerated well. Will reassess within 1 HR. Will continue to monitor.
[2017-04-22 00:10] VITALS: BP 125/76
--- NOTE | 2017-04-22 00:10 | NUR ---
PRN Motrin Reassessment Medication moderately effective. Pain reduced to 4/10. No s/s of ASe/distress noted at this time. Respirations even and unlabored. Will continue to monitor.
[2017-04-22] MEDS: ACETAMINOPHEN 325 MG TABLET PO PRN ×2 (01:00→12:17)
--- NOTE | 2017-04-22 01:00 | NUR ---
PRN Tylenol Pt c/o toothache 04/29 and requested for PRN Tylenol. Medication given and tolerated well. Will reassess within 1 HR. Will continue to monitor.
--- NOTE | 2017-04-22 02:00 | NUR ---
PRN Tylenol Reassessment Medication moderately effective. Pain reduced to 4/10. No s/s of ASE/distress noted at this time. Respirations even and unlabored. Will continue to monitor.
[2017-04-22 04:40] VITALS: BP 122/73
--- NOTE | 2017-04-22 07:00 | NUR ---
End of shift note Pt is a 31 yo male, A+Ox4, presenting to [facility] for ETOH/Benzo dependence. Pt has Allergies to PCN and Aspirin. Pt is on Fall and Seizure precautions. Pt has HX of DM, HTN, Asthma, Anxiety, and Depression. Pt is on 5 day Ativan taper, tolerated well. Pt was given PRN Benadryl @2028, PRN Motrin @2312, and PRN Tylenol @0100. Pt slept for a total of 3 HRS. Last CIWA: 3 @0400. No s/s of distress noted at this time. Respirations even and unlabored. Will endorse to day shift nurse.
[2017-04-22] MEDS: BLOOD SUGAR DIAGNOSTIC 1 EACH STRIP VI SCH ×4 (07:38→21:40)
[2017-04-22 08:00] VITALS: BP 118/85
[2017-04-22 08:32] LABS: CREATININE 1.1 mg/dL (0.6-1.3); MAGNESIUM 1.4 mg/dL (1.8-2.4); PHOSPHOROUS 4.8 mg/dL (2.5-4.9); POTASSIUM 4.3 mmol/L (3.5-5.1)
[2017-04-22] MEDS: PAROXETINE HCL 20 MG TABLET PO SCH (08:36)
[2017-04-22] MEDS: LORAZEPAM 1 MG TABLET PO SCH ×4 (08:36→21:26)
[2017-04-22] MEDS: MULTIVITAMINS,THERAPEUTIC TABLET PO SCH (08:36)
[2017-04-22] MEDS: GABAPENTIN 300 MG CAPSULE PO SCH ×3 (08:36→21:26)
[2017-04-22] MEDS: FOLIC ACID 1 MG TABLET PO SCH (08:36)
[2017-04-22] MEDS: THIAMINE HCL 100 MG TABLET PO SCH (08:36)
[2017-04-22] MEDS: INSULIN REGULAR, HUMAN 300 UNIT/3 ML VIAL SQ PRN ×3 (08:38→17:24)
[2017-04-22] MEDS: INSULIN DETEMIR 300 UNIT/3 ML CARTRIDGE SQ SCH ×2 (08:39→21:41)
[2017-04-22] MEDS: METOPROLOL TARTRATE 50 MG TABLET PO SCH ×2 (08:47→21:26)
--- NOTE | 2017-04-22 09:31 | NUR ---
START OF SHIFT Received report from warehouse supervisor 3rd shift nurse. Patient is 31 year old male admitted for medically supervised withdrawal from alcohol and Benzodiazepines. Patient is full code with allergies to penicillin and aspirin. On assessment this AM: CIWA: 2. Denies SOB, chest pain. Vitals signs: 118/85, HR 82, RR18, 97% 02 sat RA, T 98,3, 8/10 tooth pain. Blood sugar this morning was 350, 12 units of sliding scale regular insulin and 20 units of routine detemir insulin given. Mild tremors noted, patient reports mild anxiety. Med compliant with AM meds. On 5-Day Ativan taper. Encouraged patient to hydrate with fluids. Patient was encouraged to attend group meetingstoday. Patient goes out for smoke with escorts. Will continue to monitor patient.
[2017-04-22] MEDS: LIDOCAINE VISCUS 2% 15 ML UDC MM PRN ×2 (09:37→16:53)
--- NOTE | 2017-04-22 09:37 | NUR ---
PRN LIDOCAINE VISCUS AND MOTRIN Patient complains of toothache 04/29. PRN lidocaine viscous and motrin. Will continue to monitor patient.
[2017-04-22] MEDS: IBUPROFEN 800 MG TABLET PO PRN ×2 (09:38→16:52)
--- NOTE | 2017-04-22 10:37 | NUR ---
REASSESSMENT LIDOCAINE VISCOUS AND MOTRIN Patient reports pain remains the same, unresolved. with prn pain meds given. Notified
[2017-04-22 12:00] VITALS: BP 126/85
--- NOTE | 2017-04-22 12:14 | NUR ---
Therapist prompted client about group times. Client stated he attended morning group and will attend afternoon group.
--- NOTE | 2017-04-22 12:17 | NUR ---
PRN TYLENOL Patient complains of toothache 05/30. PRN tylenol given. Will continue to monitor patient.
[2017-04-22] MEDS ORDERED: MAGNESIUM OXIDE 400 MG TABLET PO ONE (12:30)
--- NOTE | 2017-04-22 13:00 | NUR ---
PPD SKIN READ Patient's RFA was read for PPD. Noted to have 12mm induration with erythema. Discussed with Md, chest x-ray ordered.
--- NOTE | 2017-04-22 13:17 | NUR ---
REASSESSMENT PRN TYLENOL Patient reports mildly effective, pain level is 7/10.
[2017-04-22] MEDS ORDERED: ACETAMINOPHEN ES 500 MG TABLET PO PRN (13:30)
[2017-04-22 16:00] VITALS: BP 110/77
--- NOTE | 2017-04-22 16:52 | NUR ---
PRN MOTRIN AND LIDOCAINE VISCOUS Patient complains of 10/10 R molar tooth ache. PRN motrin and lidocaine viscous given. Will continue to monitor patient.
[2017-04-22] MEDS: BOOST GLUCOSE CONTROL 237 ML LIQUID (CHOCOLATE) PO SCH (17:30)
--- NOTE | 2017-04-22 17:52 | NUR ---
REASSESSMENT PRN MOTRIN AND LIDOCAINE VISCOUS Patient reports pain decreased to 8/10.
--- NOTE | 2017-04-22 19:07 | NUR ---
END OF SHIFT Patient is 31 year old male admitted for medically supervised withdrawal from alcohol and Benzodiazepines. Patient is full code with allergies to penicillin and aspirin. On assessment this AM: CIWA: 1. Denies SOB, chest pain. Last vitals signs: 110/77, HR 75, RR18, 98% RA, Temp 98.0, 10/10 pain. On 5-Day Ativan taper. PRN ibuprofen, tylenol and lidocaine viscous given during this shift for toothache. Compliant with routine meds during this shift. Supplemental drink was ordered with meals due to patient's diffuculty with chewing. Blood sugar at dinner time was 266, 9 units of sliding scale regular insulin given. Patient was also educated about not snacking in his room and to be compliant with the current diet regimen as ordered, patient verbalized understanding. Patient has positive PPD, discussed with MD, chest x-ray ordered. Patient tolerating meals without n/v. 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
--- NOTE | 2017-04-22 19:08 | NUR ---
Start of shift note Received report from day shift nurse. Pt is a 31 yo male, A+Ox4, presenting to [facility] for ETOH/Benzo dependence. Pt has Allergies to PCN and Aspirin, is on Full Code status, and on Regular diet. Pt is on Fall and Seizure precautions. Pt has HX of DM, HTN, Asthma, Anxiety, and Depression. Pt is on 5 day Ativan taper, tolerated well. No s/s of distress noted at this time. Respirations even and unlabored. Will continue to monitor.
[2017-04-22 20:02] VITALS: BP 111/81
[2017-04-22] MEDS: FAMOTIDINE 20 MG TABLET PO SCH (21:26)
[2017-04-22] MEDS: INSULIN REGULAR, HUMAN 300 UNITS/3 ML VIAL SQ PRN (21:42)
[2017-04-22] MEDS: diphenhydrAMINE 50 MG CAPSULE PO PRN (21:42)
--- NOTE | 2017-04-22 21:42 | NUR ---
PRN Benadryl and Tylenol Pt c/o toothache and inability to sleep and requested for PRN Tylenol and Benadryl. Medications given and tolerated well. Will reassess within 1 HR. Will continue to monitor.
--- NOTE | 2017-04-22 22:40 | NUR ---
PRN Benadryl and Tylenol Reassessment Medications effective. Pt is resting well in bed. No s/s of ASE/distress noted at this time. Respirations even and unlabored. Will continue to monitor.
[2017-04-23 00:10] VITALS: BP 115/79
[2017-04-23 04:02] VITALS: BP 112/76
--- NOTE | 2017-04-23 07:00 | NUR ---
End of shift note Pt is a 31 yo male, A+Ox4, presenting to [facility] for ETOH/Benzo dependence. Pt has Allergies to PCN and Aspirin. Pt is on Fall and Seizure precautions. Pt has HX of DM, HTN, Asthma, Anxiety, and Depression. Pt is on 5 day Ativan taper, tolerated well. Pt was given PRN Benadryl and Tylenol @2142. Pt slept for a total of 6 HRS. Last CIWA: 2 @0400. No s/s of distress noted at this time. Respirations even and unlabored. Will endorse to day shift nurse.
--- NOTE | 2017-04-23 07:30 | NUR ---
Start of Shift Electrotype Molder received report on 31 year old male pt admitted on 04/19/17 for ETOH and Benzodiazepine detoxification. Pt is full code, with allergies to PCN and Aspirin. PMH of DM 1, anxiety, depression, HTN and asthma. Pt palced on universal, fall and seizure precautions. Last CIWA of 2 recorded at 0400. Pt received Benadryl and Tylenol during NOC, per report. Electrotype Molder encounters pt in bedroom, call and cooperative and able to make needs known. Pleasant on approach. A/O x4. Bed in low position, wheels locked, side rails up x2 and call light within reach. All safety measures in place per policy.
[2017-04-23] MEDS: BLOOD SUGAR DIAGNOSTIC 1 EACH STRIP VI SCH ×4 (07:41→21:12)
[2017-04-23 08:05] LABS: BASOPHILS # (AUTO) 0.1 K/uL (0.0-8.0); EOSINOPHILS # (AUTO) 0.4 K/uL (0.0-0.7); EOSINOPHILS % (AUTO) 4.9 % (0.0-7.0); HEMATOCRIT 42.9 % (40-50); HEMOGLOBIN 14.4 G/DL (14.0-18.0); LYMPHOCYTES # (AUTO) 3.1 K/UL (0.8-4.8); LYMPHOCYTES % (AUTO) 36.5 % (20.5-51.5); MEAN CORPUSCULAR HEMOGLOBIN 33.8 UUG (27.0-31.0); MEAN CORPUSCULAR HGB CONC 34 g/dL (32.0-37.0); MEAN CORPUSCULAR VOLUME 100.4 FL (82.0-92.0); MONOCYTES # (AUTO) 0.7 K/UL (0.1-1.30); MONOCYTES % (AUTO) 8.8 % (0.0-11.0); NEUTROPHILS # (AUTO) 4.1 K/UL (1.8-8.9); NEUTROPHILS % (AUTO) 48.8 % (38.5-71.5); PLATELET COUNT (AUTO) 313 K/UL (150-450); RED BLOOD CELL COUNT(AUTO) 4.27 MIL/UL (4.7-6.1); WHITE BLOOD COUNT (AUTO) 8.4 K/UL (4.0-11.2)
[2017-04-23 08:09] LABS: CREATININE 1.1 mg/dL (0.6-1.3); MAGNESIUM 1.3 mg/dL (1.8-2.4); POTASSIUM 4.6 mmol/L (3.5-5.1)
--- NOTE | 2017-04-23 08:38 | NUR ---
Communication House Rn notified Dr. Olievra of pt's BS of 434. House Rn was ordered to provide coverage according to sliding scale up to 400. Will administer sliding scale, along with scheduled long acting. Will continue to monitor, support and encourage according to plan of care.
[2017-04-23 08:40] VITALS: BP 140/95
[2017-04-23] MEDS: INSULIN REGULAR, HUMAN 300 UNIT/3 ML VIAL SQ PRN ×3 (08:49→17:05)
[2017-04-23] MEDS: INSULIN DETEMIR 300 UNIT/3 ML CARTRIDGE SQ SCH ×2 (08:49→21:12)
[2017-04-23] MEDS: FAMOTIDINE 20 MG TABLET PO SCH ×2 (08:52→21:07)
[2017-04-23] MEDS: LORAZEPAM 1 MG TABLET PO SCH ×3 (08:52→21:07)
[2017-04-23] MEDS: GABAPENTIN 300 MG CAPSULE PO SCH ×3 (08:52→21:07)
[2017-04-23] MEDS: FOLIC ACID 1 MG TABLET PO SCH (08:52)
[2017-04-23] MEDS: PAROXETINE HCL 20 MG TABLET PO SCH (08:58)
[2017-04-23] MEDS: METOPROLOL TARTRATE 50 MG TABLET PO SCH ×2 (08:59→21:07)
[2017-04-23] MEDS: THIAMINE HCL 100 MG TABLET PO SCH (08:59)
[2017-04-23] MEDS: BOOST GLUCOSE CONTROL 237 ML LIQUID (CHOCOLATE) PO SCH ×4 (08:59→17:19)
[2017-04-23] MEDS: MULTIVITAMINS,THERAPEUTIC TABLET PO SCH (08:59)
[2017-04-23 12:45] VITALS: BP 130/88
[2017-04-23 16:57] VITALS: BP 113/83
--- NOTE | 2017-04-23 18:52 | NUR ---
End of Shift Plane Captain provided report on 31 year old male pt admitted on 04/19/17 for ETOH and Benzodiazepine detoxification, with no further comments, questions or concerns voiced. Pt is full code, with allergies to PCN and Aspirin. PMH of DM 1, anxiety, depression, HTN and asthma. Pt placed on universal, fall and seizure precautions. Last CIWA of 2 recorded at 1600. No PRNs on this shift. Pt is calm and cooperative and able to make needs known. Pt has been medication and treatment compliant. Pleasant on approach. A/O x4. Bed in low position, wheels locked, side rails up x2 and call light within reach. All safety measures in place per policy.
--- NOTE | 2017-04-23 19:10 | NUR ---
Start of Shift Patient Received. Patient is in activities room participating in a group meeting. Patient is a 31 year old male admitted on 04/19/17for ETOH and Benzo Dependence under the care of Dr. Olivera. Patient is currently receiving a 5 day Ativan taper. Patient verbalizes allergies to PCN and Asprin, wishes to be full code, following a Diabetic Diet, placed on fall and seizure precautions, wish skin noted intact. Past medical history of DM I, anxiety, depression, HTN, and Asthma. Per endorsement, patient is noted to be compliant with medications and is tolerating plan of care well. Patient is currently on routine accu checks with last noted BS check as 153. Coverage administered accordingly. Last COWS noted to be 2. All needs attended to promptly. Will continue plan of care as ordered.
[2017-04-23 20:53] VITALS: BP 126/83
[2017-04-23] MEDS: MAGNESIUM OXIDE 400 MG TABLET PO SCH (21:07)
[2017-04-23] MEDS: IBUPROFEN 800 MG TABLET PO PRN (21:07)
[2017-04-23] MEDS: INSULIN REGULAR, HUMAN 300 UNITS/3 ML VIAL SQ PRN (21:10)
--- NOTE | 2017-04-23 21:10 | NUR ---
PRN Medication Administration Patient is verbalizing increase pain 7/10 due to toothache. PRN Motrin administered as per orders. Will continue to monitor.
--- NOTE | 2017-04-23 22:00 | NUR ---
PRN Medication Reassessment Patient noted returning from smoking break. Patient is able to verbalize Motrin was able to minimize pain of toothache. PRN Motrin noted to be effective. Will continue to monitor.
[2017-04-24] VITALS: BP 123/78
--- NOTE | 2017-04-24 01:40 | NUR ---
RN note one-time Accu Check order Patient verbalized "I have been peeing a lot" and stated that his blood sugar may be high. Notified Dr. Grubbs and ordered one- time accu-check with moderate coverage of Humulin R based on the moderate sliding scale. Order entered at [facility] and primary care nurse to carry out.
[2017-04-24] MEDS ORDERED: BLOOD SUGAR DIAGNOSTIC 1 EACH STRIP VI ONE (01:45)
[2017-04-24] MEDS: INSULIN REGULAR, HUMAN 300 UNITS/3 ML VIAL SQ PRN ×2 (01:57→21:16)
[2017-04-24] MEDS: diphenhydrAMINE 50 MG CAPSULE PO PRN ×2 (02:10→21:07)
--- NOTE | 2017-04-24 02:10 | NUR ---
PRN Medication Administration Patient is verbalizing inability of falling asleep. PRN Benadryl administered as per order. Will continue to monitor.
--- NOTE | 2017-04-24 02:10 | NUR ---
RN note Extra 10 units of Humulin R Insulin Accu Check done, blood qklri=049 mg/DL. Administered 10 units Humulin R insulin based on moderate sliding scale. Informed Dr. Grubbs and he ordered another dose of Humulin R insulin 10 units. Total units administered is 20.
[2017-04-24] MEDS ORDERED: INSULIN REGULAR, HUMAN 300 UNIT/3 ML VIAL SQ ONE (02:15)
[2017-04-24 04:25] VITALS: BP 116/75
--- NOTE | 2017-04-24 07:16 | NUR ---
End of Shift Patient is in bed sleeping. Breathing even and non labored. No signs of pain or discomfort noted. Patient is a 31 year old male admitted on 04/19/17for ETOH and Benzo Dependence under the care of Dr. Olivera. Patient is currently receiving a 5 day Ativan taper. Patient verbalizes allergies to PCN and Asprin, wishes to be full code, following a Diabetic Diet, placed on fall and seizure precautions, wish skin noted intact. Past medical history of DM I, anxiety, depression, HTN, and Asthma. Patient was given PRN Motrin for pain due to a toothache. Patient also noted to request for blood sugar to be check due to increased urination. Information relayed to MD with orders to check blood sugar and to follow sliding scale for QHS. Blood Sugar noted to be 502 with 10 units given as per orders. MD made aware with an additional dose of 10units to be administered. Patient was also given PRN Benadryl for sleep with medication noted to be effective. Patient noted to sleep a total of 3 hours. All needs attended to promptly. Will endorse to continue plan of care as ordered.
[2017-04-24 08:00] VITALS: BP 109/71
--- NOTE | 2017-04-24 08:05 | NUR ---
START OF SHIFT: RECEIVED PT A/O X 4. BG 102. HE PRESENTS WITH ANXIOUS MOOD AND CONGRUENT AFFECT. HE REPORTS SOME MILD ANXIETY AND STATES THE ATIVAN IS EFFECTIVE. ATIVAN TAPER IN PROGRESS. ENCOURAGED GROUP ATTENDANCE TO IMPROVE COPING SKILLS AND PREVENT RELAPSE. WILL CONTINUE TO MONITOR AND OFFER SAFE AND SUPPORTIVE ENVIRONMENT.
[2017-04-24] MEDS: BLOOD SUGAR DIAGNOSTIC 1 EACH STRIP VI SCH ×4 (08:20→21:10)
[2017-04-24] MEDS: METOPROLOL TARTRATE 50 MG TABLET PO SCH ×2 (08:29→21:07)
[2017-04-24] MEDS: FAMOTIDINE 20 MG TABLET PO SCH ×2 (08:29→21:07)
[2017-04-24] MEDS: BOOST GLUCOSE CONTROL 237 ML LIQUID (CHOCOLATE) PO SCH ×3 (08:29→17:38)
[2017-04-24] MEDS: GABAPENTIN 300 MG CAPSULE PO SCH ×3 (08:30→21:07)
[2017-04-24] MEDS: LORAZEPAM 1 MG TABLET PO SCH ×2 (08:30→21:07)
[2017-04-24] MEDS: THIAMINE HCL 100 MG TABLET PO SCH (08:30)
[2017-04-24] MEDS: MULTIVITAMINS,THERAPEUTIC TABLET PO SCH (08:30)
[2017-04-24] MEDS: PAROXETINE HCL 20 MG TABLET PO SCH (08:30)
[2017-04-24] MEDS: FOLIC ACID 1 MG TABLET PO SCH (08:30)
[2017-04-24] MEDS: INSULIN DETEMIR 300 UNIT/3 ML CARTRIDGE SQ SCH ×2 (08:32→21:17)
[2017-04-24 12:00] VITALS: BP 134/86
[2017-04-24] MEDS: INSULIN REGULAR, HUMAN 300 UNIT/3 ML VIAL SQ PRN ×2 (12:54→17:36)
[2017-04-24] MEDS ORDERED: ACETAMINOPHEN 325 MG TABLET PO PRN (13:30)
[2017-04-24] MEDS ORDERED: INSU100I19 SQ (14:58)
[2017-04-24] MEDS ORDERED: IBUP-1957 PO (14:58)
[2017-04-24] MEDS ORDERED: FAMO20TA8 PO (14:58)
[2017-04-24] MEDS ORDERED: GABA-534 PO ×2 (14:58)
[2017-04-24] MEDS ORDERED: DIPH50CA37 PO (14:58)
[2017-04-24 16:00] VITALS: BP 134/96
[2017-04-24] MEDS ORDERED: INSULIN ASPART 300 UNIT/3 ML CARTRIDGE SQ SCH (16:30)
[2017-04-24] MEDS: INSULIN LISPRO 1000 UNITS/10 ML VIAL(HUMALOG) SQ SCH (17:35)
--- NOTE | 2017-04-24 18:46 | NUR ---
END OF SHIFT: PT CONTINUES ON ATIVAN TAPER. CHANGES MADE PER MD FOR INSULIN ORDERS. LAST BG 284. NO PRNS GIVEN AND HE STATES THE DETOX MEDS ARE EFFECTIVE. PT IS COMPLIANT WITH GROUPS AND MEDICATIONS. WILL PASS SHIFT REPORT TO ONCOMING NIGHT NURSE.
--- NOTE | 2017-04-24 19:10 | NUR ---
Start of Shift Patient Received. Patient is in activities room participating in a group meeting. Patient is a 31 year old male admitted on 04/19/17for ETOH and Benzo Dependence under the care of Dr. Olivera. Patient continues to receive a 5 day Ativan taper. Per endorsement, patient is noted to be compliant with medications and is tolerating plan of care well. Patient is currently on routine accu checks with last noted BS check as 284. Coverage administered accordingly. Last COWS noted to be 1. All needs attended to promptly. Will continue plan of care as ordered.
[2017-04-24 20:57] VITALS: BP 132/82
[2017-04-24] MEDS: IBUPROFEN 800 MG TABLET PO PRN (21:07)
[2017-04-24] MEDS: MAGNESIUM OXIDE 400 MG TABLET PO SCH (21:07)
--- NOTE | 2017-04-24 21:07 | NUR ---
PRN Medication Administration Patient is verbalizing increase pain 7/10 due to toothache and inability of falling asleep. PRN Motrin and Benadryl administered as per orders. Will continue to monitor.
--- NOTE | 2017-04-24 22:15 | NUR ---
PRN Medication Reassessment Patient noted in bed watching TV. Breathing even and non labored. Patient is able to verbalize pain has subsided to a tolerable 3/10. No medication required. Patient also verbalized that he was making his way to bed shortly. PRN Motrin and Benadryl noted to be effective. Will continue to monitor.
--- NOTE | 2017-04-25 | NUR ---
DEBBY MCCANN RE-ASSESSMENT PATIENT IN BED WITH HIS EYES CLOSED. RESPIRATION EVEN AND UNLABORED. SAFETY MEASURES IN PLACE. CALL LIGHT IN REACH. WILL CONTINUE TO MONITOR. Addendum: 04/26/17 at 0645 by ANT BROWN LVN ERROR : CHARTING
[2017-04-25 00:36] VITALS: BP 126/76
[2017-04-25 04:00] VITALS: BP 122/70
--- NOTE | 2017-04-25 07:04 | NUR ---
End of Shift Patient is in bed sleeping. Breathing even and non labored. No signs of pain or discomfort noted. Patient is a 31 year old male admitted on 04/19/17for ETOH and Benzo Dependence under the care of Dr. Olivera. Patient continues to receiving 5 day Ativan taper. Patient was given PRN Motrin for pain due to a toothache. Patient was also given PRN Benadryl for sleep with medication noted to be effective. Patient noted to sleep a total of 6 hours. All needs attended to promptly. Will endorse to continue plan of care as ordered.
[2017-04-25] MEDS: INSULIN LISPRO 1000 UNITS/10 ML VIAL(HUMALOG) SQ SCH ×3 (07:30→16:46)
--- NOTE | 2017-04-25 07:30 | NUR ---
START OF SHIFT NOTE Received report from night nurse, 31 year old male admitted for ETOH/Benzo dependence. Pt reported PMH of DM I, HTN, Depression, Anxiety and Asthma. Per endorsement pt were given Motrin, Benadryl, Last CIWA-2. Received pt in his room in stable condition. Breathing normal no SOB noted respirations even and unlabored. Educated patient on his current plan of care for the day and his medication regimen, and encourage Po fluids as tolerated. All safety measures in place, Call light within reach. Will continue to monitor.
--- NOTE | 2017-04-25 07:30 | NUR ---
ACCU CHECK Pt's blood sugar noted 87mg/dl. MD notified and Humalog/Levemir held as ordered.
[2017-04-25 08:00] VITALS: BP 108/68
[2017-04-25] MEDS: BOOST GLUCOSE CONTROL 237 ML LIQUID (CHOCOLATE) PO SCH ×3 (08:09→16:43)
[2017-04-25] MEDS: BLOOD SUGAR DIAGNOSTIC 1 EACH STRIP VI SCH ×4 (08:16→21:43)
[2017-04-25] MEDS: INSULIN DETEMIR 300 UNIT/3 ML CARTRIDGE SQ SCH ×2 (08:19→21:42)
[2017-04-25] MEDS: FAMOTIDINE 20 MG TABLET PO SCH ×2 (08:20→21:31)
[2017-04-25] MEDS: MULTIVITAMINS,THERAPEUTIC TABLET PO SCH (08:20)
[2017-04-25] MEDS: METOPROLOL TARTRATE 50 MG TABLET PO SCH ×2 (08:20→21:31)
[2017-04-25] MEDS: THIAMINE HCL 100 MG TABLET PO SCH (08:20)
[2017-04-25] MEDS: FOLIC ACID 1 MG TABLET PO SCH (08:20)
[2017-04-25] MEDS: GABAPENTIN 300 MG CAPSULE PO SCH ×3 (08:20→21:31)
[2017-04-25] MEDS: PAROXETINE HCL 20 MG TABLET PO SCH (08:20)
--- NOTE | 2017-04-25 11:30 | NUR ---
BLOOD SUGAR RESULT pt's blood sugar noted 253mg/dl, administered 9 units Humulin-R as per sliding scale on Left Deltoid. Will cont to monitor.
[2017-04-25] MEDS: INSULIN REGULAR, HUMAN 300 UNIT/3 ML VIAL SQ PRN (11:45)
[2017-04-25 12:00] VITALS: BP 129/97
[2017-04-25 12:46] LABS: *AMPHETAMINE, URINE NEGATIVE (NEGATIVE); *BARBITURATE, URINE NEGATIVE (NEGATIVE); *CANNABINOID, URINE NEGATIVE (NEGATIVE); *COCCAINE, URINE NEGATIVE (NEGATIVE); *OPIATE, URINE NEGATIVE (NEGATIVE); *PHENCYCLIDINE SCREEN,URINE NEGATIVE (NEGATIVE)
[2017-04-25 16:00] VITALS: BP 135/90
--- NOTE | 2017-04-25 16:30 | NUR ---
ACCU CHECK Pt's blood sugar noted 187mg/dl. Administered 3 units of Humulin- R insulin per sliding scale as ordered.
--- NOTE | 2017-04-25 19:13 | NUR ---
END OF SHIFT NOTE Gave report to night nurse, 31 year old male admitted for ETOH/Benzo dependence. Pt reported PMH of DM I, HTN, Depression, Anxiety and Asthma. Pt completed his 5 days Ativan taper tolerated well. Pt did not receive any PRN medication. Pt scheduled for discharge in AM, urine drug screen completed and placed in the chart. Skin intact warm and dry to touch. Pt attended some groups and activities. Pt remained compliant with care. Vital signs remained WNL. All safety measures in place, Call light within reach. Pt endorsed to night nurse in stable condition.
[2017-04-25 20:00] VITALS: BP 134/89
--- NOTE | 2017-04-25 20:00 | NUR ---
START OF SHIFT NOTE PATIENT ALERT AND ORIENTED X 4. RESPIRATION EVEN AND UNLABORED. PATIENT REPORTS ANXIOUS BUT HE'S ALRIGHT. PATIENT STATES HES LEAVING TOMORROW. RECEIVED REPORT FROM DAY SHIFT NURSE. PATIENT IS A 31 YEAR OLD MALE, ADMITTED FOR ETOH/BENZO DEPENDENCE. PATIENTS DRUG OF CHOICE ARE LIBRIUM AND VODKA. PATIENT COMPLETED 5 DAYS ATIVAN TAPER. PATIENT IS MEDICALLY CLEARED TO BE DISCHARGE TOMORROW. PATIENT IS ALLERGIC TO PENICILLIN. PATIENT IS ON DIABETIC DIET. PATIENT REPORTS PMH OF DM I, ANXIETY, DEPRESSION. HTN AND ASTHMA. NO SEIZURE HISTORY. SKIN INTACT. PER DAY SHIFT NURSE. PATIENT IS NON-COMPLIANT WITH THE DIET. LAST CIWA 1. ON FALL/SEIZURE PRECAUTION. SAFETY MEASURES IN PLACE. CALL LIGHT IN REACH. WILL CONTINUE TO MONITOR.
[2017-04-25] MEDS: MAGNESIUM OXIDE 400 MG TABLET PO SCH (21:31)
[2017-04-25] MEDS: diphenhydrAMINE 50 MG CAPSULE PO PRN (21:37)
--- NOTE | 2017-04-25 21:37 | NUR ---
PRN BENADRYL ADMINISTRATION PATIENT REQUESTS FOR SLEEP AID. PRN BENADRYL GIVEN. WILL MONITOR FOR EFFECTIVENESS.
[2017-04-25] MEDS: INSULIN REGULAR, HUMAN 300 UNITS/3 ML VIAL SQ PRN (21:46)
[2017-04-26] VITALS: BP 152/92
--- NOTE | 2017-04-26 | NUR ---
DEBBY MCCANN RE-ASSESSMENT PATIENT IN BED WITH HIS EYES CLOSED. RESPIRATION EVEN AND UNLABORED. SAFETY MEASURES IN PLACE. CALL LIGHT IN REACH. WILL CONTINUE TO MONITOR.
--- NOTE | 2017-04-26 04:00 | NUR ---
CIWA/VS PATIENT ASLEEP. CIWA UNABLE TO ASSESS. NO S/S OF DISTRESS. RESPIRATION EVEN AND UNLABORED. SAFETY MEASURES IN PLACE. CALL LIGHT IN REACH. WILL CONTINUE TO MONITOR
--- NOTE | 2017-04-26 07:00 | NUR ---
Start of Shift Endorsement received from nightshift nurse. Pt is a 19 y/o male admitted for Heroin dependence. Pt has been placed on a 4 day Subutex taper. PT is tolerating the taper and mildly withdrawing AEB COWS 3. Pt reports sleeping 6 hours.Pt received PRN Motrin and Seroquel. VS WNL. Full Code. . Pt is in STABLE condition at this time. Remains compliant with medication and diet regimen. All needs have been met, All safety measures in place per hospital policy. Bed in lowest position, side rails up x2, call-light within reach. Will continue to monitor.
--- NOTE | 2017-04-26 07:19 | NUR ---
END OF SHIFT NOTE PATIENT REMAIN ALERT AND ORIENTED X 4. RESPIRATION EVEN AND UNLABORED. PATIENT IS A 31 YEAR OLD MALE, ADMITTED FOR ETOH/BENZO DEPENDENCE. PATIENTS DRUG OF CHOICE ARE LIBRIUM AND VODKA. PATIENT COMPLETED 5 DAYS ATIVAN TAPER. PATIENT IS MEDICALLY CLEARED TO BE DISCHARGE TODAY. PATIENT IS ALLERGIC TO PENICILLIN. PATIENT IS ON DIABETIC DIET. NO SEIZURE HISTORY. SKIN INTACT. ACCUCHECK DONE @2100, BLOOD SUGAR 265 , INSULIN GIVEN ORDERED . ON FALL/SEIZURE PRECAUTION. SAFETY MEASURES IN PLACE. CALL LIGHT IN REACH. WILL CONTINUE TO MONITOR. SLEPT 7 HOURS. FLUID INTAKE 1,451 ML. VOIDED X 3. NO BM. LAST CIWA 0 .
[2017-04-26] MEDS: BLOOD SUGAR DIAGNOSTIC 1 EACH STRIP VI SCH (07:59)
[2017-04-26 08:00] VITALS: BP 126/82
[2017-04-26] MEDS: INSULIN LISPRO 1000 UNITS/10 ML VIAL(HUMALOG) SQ SCH (08:01)
[2017-04-26] MEDS: INSULIN REGULAR, HUMAN 300 UNIT/3 ML VIAL SQ PRN (08:02)
[2017-04-26 08:03] VITALS: BP 126/82
[2017-04-26] MEDS: FOLIC ACID 1 MG TABLET PO SCH (08:03)
[2017-04-26] MEDS: METOPROLOL TARTRATE 50 MG TABLET PO SCH (08:03)
[2017-04-26] MEDS: FAMOTIDINE 20 MG TABLET PO SCH (08:03)
[2017-04-26] MEDS: PAROXETINE HCL 20 MG TABLET PO SCH (08:03)
[2017-04-26] MEDS: GABAPENTIN 300 MG CAPSULE PO SCH (08:04)
[2017-04-26] MEDS: INSULIN DETEMIR 300 UNIT/3 ML CARTRIDGE SQ SCH (08:05)
[2017-04-26] MEDS: MULTIVITAMINS,THERAPEUTIC TABLET PO SCH (08:05)
[2017-04-26] MEDS: BOOST GLUCOSE CONTROL 237 ML LIQUID (CHOCOLATE) PO SCH (08:06)
[2017-04-26] MEDS: THIAMINE HCL 100 MG TABLET PO SCH (08:06)
--- NOTE | 2017-04-26 09:37 | NUR ---
Discharge note PT has been discharged from [facility] to [facility]. PT is in Stable condition, VS WNL. Denies suicidal and homicidal ideations at this time. . All documentation has been completed, paperwork signed and dated. Pt left with all of his belongings, medications and prescriptions. Pt has been discharged from [facility] on 04/26/2017 at 0937. has been Notified.
== END 2017-04-26 09:37 | disposition other institution (70) | DRG 895 ==
LOC: SRC 18:34
PROVIDERS: ADMIT Internal Medicine; ATTEND Internal Medicine
PROC: HZ2ZZZZ Detoxification Services for Substance Abuse Treatment (ICD-10-PCS; principal; 2017-04-19)
PROC: HZ41ZZZ Group Counseling for Substance Abuse Treatment, Behavioral (ICD-10-PCS; 2017-04-20)
PROC: HZ31ZZZ Individual Counseling for Substance Abuse Treatment, Behavioral (ICD-10-PCS; 2017-04-21)
DX: F10.230 Alcohol dependence with withdrawal, uncomplicated (principal); F13.20 Sedative, hypnotic or anxiolytic dependence, uncomplicated; E87.3 Alkalosis; F13.230 Sedative, hypnotic or anxiolytic dependence with withdrawal, uncomplicated; Y90.8 Blood alcohol level of 240 mg/100 ml or more; F11.21 Opioid dependence, in remission; J45.20 Mild intermittent asthma, uncomplicated; F41.9 Anxiety disorder, unspecified; Z88.6 Allergy status to analgesic agent; Z79.4 Long term (current) use of insulin; Z88.0 Allergy status to penicillin; E87.6 Hypokalemia; E83.42 Hypomagnesemia; Z91.11 Patient's noncompliance with dietary regimen; E10.65 Type 1 diabetes mellitus with hyperglycemia; K08.89 Other specified disorders of teeth and supporting structures; F32.9 Major depressive disorder, single episode, unspecified; F17.210 Nicotine dependence, cigarettes, uncomplicated; E86.0 Dehydration
CPT/HCPCS: 36415; 70030-TC; 71010; 80307; 80346; 83690; 83735; 84100; 85025; 86592; 86705; 86803; 87340; 87806; A4663; G0480; J1815; J1885; Q0163

== ENCOUNTER 2017-06-22 13:23 | Inpatient (IN) | payer OTHER ==
[~2017-06-22] VITALS: Ht 185.4 cm; Wt 81.6 kg
[~2017-06-22 13:23] MED LIST changes: +DIPH50CA37 PO; +DISU250T7 PO; +FAMO20TA8 PO; +GABA-534 PO; +IBUP-1957 PO; +METO50TA3 PO
--- NOTE | 2017-06-22 13:55 | NUR ---
Intake assessment Pt seen down in intake, pt has already been seen by Dr Grubbs and cleared to come up to the unit. BP is 127/87 HR 119 SPO2 96% on RA, pt noted to be flushed, dry heaving, trembling, and obviously anxious. Dr Grubbs is aware and states that pt can come to unit and to start IVF and administer medications as ordered. Will continue to monitor pt and place pt on a 1:1 upon arrival to unit.
[2017-06-22] MEDS ORDERED: diphenhydrAMINE 50 MG CAPSULE PO PRN (14:00)
[2017-06-22] MEDS ORDERED: INSULIN REGULAR, HUMAN 300 UNIT/3 ML VIAL SQ PRN ×2 (14:00→18:00)
[2017-06-22] MEDS ORDERED: THIAMINE HCL 200 MG/2 ML VIAL IM ONE (14:00)
[2017-06-22] MEDS ORDERED: ACETAMINOPHEN 325 MG TABLET PO PRN (14:00)
[2017-06-22] MEDS ORDERED: MIRALAX 17 GM POWD.PACK PO PRN (14:00)
[2017-06-22] MEDS ORDERED: MAG HYDROX/AL HYDROX/SIMETH 30 ML LIQUID UDC PO PRN (14:00)
[2017-06-22] MEDS ORDERED: INSULIN REGULAR, HUMAN 300 UNITS/3 ML VIAL SQ PRN (14:00)
[2017-06-22] MEDS ORDERED: DEXTROSE 50% 50 ML DISP.SYRIN IV PRN ×3 (14:00→18:00)
[2017-06-22] MEDS ORDERED: MAGNESIUM HYDROXIDE 30 ML LIQUID UDC PO PRN (14:00)
[2017-06-22] MEDS ORDERED: BLOOD SUGAR DIAGNOSTIC 1 EACH STRIP VI SCH ×2 (14:00→18:00)
[2017-06-22] MEDS ORDERED: LOPERAMIDE HCL 2 MG CAPSULE PO PRN ×2 (14:00)
[2017-06-22] MEDS ORDERED: LORAZEPAM 1 MG TABLET PO PRN (14:00)
[2017-06-22] MEDS ORDERED: LORAZEPAM 2 MG/1 ML VIAL IM PRN (14:00)
--- NOTE | 2017-06-22 14:00 | NUR ---
Admission note Pt was admitted for ETOH dependence. Pt has a PMHx of anxiety, asthma, DM type I, depression and HTN. Pt arrived intoxicated and is not a reliable historian. Pt VS upon admission: BP: 127/87, HR 119, T: 98.2, SpO2 96% on RA, R: 19. Pt is 6'1, weighs 180 pounds. Reports an allergy to PCN and aspirin. Pt skin check completed by [employer], no substances found, pt skin is intact. Pt reports that his PCP is Dr Coles. Pt CIWA upon admission is 20, Dr Grubbs is aware, and will place orders. Will administer PRN medications when available. Pt placed on 1:[address] Grubbs for safety. [address] Grubbs stated he would order IV fluids, 22G peripheral IV placed in right forearm x 1 attempt, pt tolerated well. Pt accu check upon admission: 239, Dr Grubbs aware, NNO. Pt reports substance use as follows: ETOH- vodka- 2 pints daily x 1 month, last drank 1 pint prior to admission. Urine provided. All needs addressed at this time. Will continue to monitor pt.
[2017-06-22] MEDS ORDERED: LORAZEPAM 1 MG TABLET PO ONE ×2 (14:45→21:00)
[2017-06-22] MEDS: IV NS 1000 ML 1,000 ML IV PRN ×2 (14:54→21:23)
[2017-06-22 14:55] VITALS: BP 127/83
--- NOTE | 2017-06-22 14:55 | NUR ---
PRN administration After administration of onetime ativan PO order, pt immediately vomiting x 4 times. Zofran IM administered, Dr Grubbs notified, stated he would place orders. Pt continues on 1:1, IVF initiated.
[2017-06-22] MEDS: ONDANSETRON 4 MG/2 ML VIAL IM PRN ×2 (15:00→23:27)
[2017-06-22 15:12] LABS: *AMPHETAMINE, URINE NEGATIVE (NEGATIVE); *BARBITURATE, URINE NEGATIVE (NEGATIVE); *CANNABINOID, URINE NEGATIVE (NEGATIVE); *COCCAINE, URINE NEGATIVE (NEGATIVE); *OPIATE, URINE NEGATIVE (NEGATIVE); *PHENCYCLIDINE SCREEN,URINE NEGATIVE (NEGATIVE)
[2017-06-22] MEDS ORDERED: LORAZEPAM 2 MG/1 ML VIAL IV ONE ×3 (15:15→21:00)
--- NOTE | 2017-06-22 15:30 | NUR ---
Reassessment Pt states that his nausea has improved, no more vomiting noted. Will continue to monitor pt.
[2017-06-22] MEDS: SERTRALINE HCL 100 MG TABLET PO SCH (15:38)
[2017-06-22 16:00] VITALS: BP 125/73
[2017-06-22 16:04] LABS: BILIRUBIN,TOTAL 0.9 mg/dL (0.2-1.0); CREATININE 0.9 mg/dL (0.6-1.3); MAGNESIUM 1.9 mg/dL (1.8-2.4); POTASSIUM 4.3 mmol/L (3.5-5.1); TOTAL PROTEIN, SERUM 7.6 g/dL (6.4-8.2)
[2017-06-22 16:05] LABS: BASOPHILS % (AUTO) 0.3 % (0.0-2.0); HEMATOCRIT 51.7 % (40-50); HEMOGLOBIN 17.4 G/DL (14.0-18.0); LYMPHOCYTES % (AUTO) 21.5 % (20.5-51.5); MEAN CORPUSCULAR HEMOGLOBIN 33.7 UUG (27.0-31.0); MEAN CORPUSCULAR HGB CONC 34 g/dL (32.0-37.0); MONOCYTES # (AUTO) 0.5 K/UL (0.1-1.30); MONOCYTES % (AUTO) 5.3 % (0.0-11.0); NEUTROPHILS % (AUTO) 72.9 % (38.5-71.5); PLATELET COUNT (AUTO) 282 K/UL (150-450); RED BLOOD CELL COUNT(AUTO) 5.17 MIL/UL (4.7-6.1); WHITE BLOOD COUNT (AUTO) 9.5 K/UL (4.0-11.2)
[2017-06-22] MEDS ORDERED: IV NS 1000 ML 1,000 ML IV ONE (17:30)
--- NOTE | 2017-06-22 18:00 | NUR ---
Late Accu check Pt accu check and insulin administered late d/t pt vomiting. Dr Grubbs is aware. Dr Grubbs said ok to give insulin when pt is not having oral intake of food.
[2017-06-22] MEDS: INSULIN REGULAR, HUMAN 300 UNIT/3 ML VIAL SQ PRN (18:08)
[2017-06-22] MEDS: BLOOD SUGAR DIAGNOSTIC 1 EACH STRIP VI SCH ×2 (18:08→20:39)
--- NOTE | 2017-06-22 19:13 | NUR ---
End of shift note Pt was admitted for ETOH dependence. Pt has a PMHx of anxiety, DM type I, last Accu check of 204, asthma and depression. Pt is on PRN medication to manage his s/s of withdrawal. Pt is currently sleeping in bed. Pt required 2 IV doses of PRN ativan IV d/t his CIWA scores of 20 then 17 and two vomiting episodes with multiple emesis each. Pt is on a 1:1 sitter for safety. Pt IVF infusing for a one time bolus, then rate to be set at 125ml/hr. All needs addressed at this time. SBAR report endorsed.
--- NOTE | 2017-06-22 19:30 | NUR ---
START OF SHIFT Pt is a 32 y/o male admitted on 06/22/17 for ETOH withdrawal. Pt was dependent on vodka 2-3 pints daily for one month. Pt is full code, allergic to penicillins and aspirin, NPO except medications, and fall and seizure precautions. Pt has hx of seizure r/t DM, not withdrawal. Pt reports PMH of DM type 1, HTN, asthma, anxiety, depression. Pt is on 1:1 with sitter d/t fall precautions. Pt will start a 5 day Ativan taper on 06/23/17. Pt has IVF NS at 125 mL/hour. Upon assessment pt was laying in bed and presents with moderate anxiety, mild to moderate nausea, tremors, sweats, moderate flushing, hiccups, slight irritation, restlessness, photosensitivity, and headache. Last vomit episode was approximately one hour ago per pt. Denies diarrhea. Respirations 16, even and unlabored. Denies chest pain or SOB. Medications due. Safety measures in place. Call light within reach. Will continue to monitor.
[2017-06-22] MEDS: ONDANSETRON ODT 4 MG TAB.RAPDIS SL PRN (19:32)
--- NOTE | 2017-06-22 19:32 | NUR ---
PRN ZOFRAN 4 MG ADMINISTRATION Pt complains of moderate nausea. Denies vomiting. Safety measures in place. Call light within reach. Will continue to monitor. Addendum: 06/23/17 at 0153 by ROSA TANNER RN Has 1:1 sitter in room
[2017-06-22 20:00] VITALS: BP 126/75
--- NOTE | 2017-06-22 20:02 | NUR ---
DEBBY ZOFRAN 4 MG REASSESSMENT Pt reports improvement in nausea, but has not ceased. Denies vomiting. Safety measures in place. Call light within reach. Will continue to monitor. Addendum: 06/23/17 at 0153 by ROSA TANNER RN Has 1:1 sitter in room
--- NOTE | 2017-06-22 20:21 | NUR ---
x1 ATIVAN 2MG/1ML IV PUSH ADMINISTRATION CIWA 14. Pt has skin flushing, anxiety, tremors, restlessness, sweats, photosensitivity. Respirations 16, even and unlabored. Safety measures in place. Has 1:1 sitter in room. Will continue to monitor.
[2017-06-22] MEDS: INSULIN DETEMIR 300 UNIT/3 ML CARTRIDGE SQ SCH (20:22)
[2017-06-22] MEDS: GABAPENTIN 300 MG CAPSULE PO SCH (20:22)
[2017-06-22] MEDS: METOPROLOL TARTRATE 50 MG TABLET PO SCH (20:23)
[2017-06-22] MEDS: DICYCLOMINE HCL 20 MG TABLET PO PRN (20:44)
--- NOTE | 2017-06-22 20:44 | NUR ---
DEBBY [facility] ADMINISTRATION Pt reports stomach cramps and requesting sleep aid. Pt appears restless and fidgety. Safety measures in place. Call light within reach. Will continue to monitor. Addendum: 06/23/17 at 0204 by ROSA TANNER RN 1:1 sitter with pt
[2017-06-22] MEDS ORDERED: INSULIN GLARGINE,HUM 300 UNITS/3 ML CARTRIDGE SQ SCH (21:00)
--- NOTE | 2017-06-22 21:21 | NUR ---
x 1 ATIVAN IV REASSESSMENT CIWA reduced to 11. Pt reports overall mild improvement in symptoms. Pt is less anxious. Pt is laying in bed with 1:1 sitter. Safety measures in place. Call light within reach. Will continue to monitor.
--- NOTE | 2017-06-22 21:44 | NUR ---
DEBBY MCKEON AND BENADRYL REASSESSMENT Pt reports improvement in stomach cramps, but complains of mild intermittent nausea. Pt has improvement in restlessness, but is still awake. 1:1 sitter with pt. Safety measures in place. Will continue to monitor.
--- NOTE | 2017-06-22 23:27 | NUR ---
PRN ZOFRAN INJ 4 MG/2ML ADMINISTERED Pt had one episode of vomiting. 1:1 sitter at bedside. Safety measures in place. Will continue to monitor.
[2017-06-23] VITALS: BP 107/69
--- NOTE | 2017-06-23 00:07 | NUR ---
PRN ZOFRAN INJ REASSESSMENT Pt is laying in bed with eyes closed. 1:1 sitter at bedside. Safety measures in place. Call light within reach.
[2017-06-23 04:00] VITALS: BP_SYST 138; BP_SYST 144; BP_DIAS 89; BP_DIAS 92
--- NOTE | 2017-06-23 04:00 | NUR ---
CIWA DEFERRED Pt is laying in bed with eyes closed, CIWA to be assessed when pt is awake per orders. Respirations 16, even and unlabored. Safety measures in place, 1:1 sitter at bedside. Will continue to monitor.
[2017-06-23] MEDS: IV NS 1000 ML 1,000 ML IV PRN ×3 (04:37→23:30)
[2017-06-23] MEDS: ONDANSETRON ODT 4 MG TAB.RAPDIS SL PRN (04:48)
[2017-06-23] MEDS: LORAZEPAM 1 MG TABLET PO PRN ×2 (04:48→09:15)
--- NOTE | 2017-06-23 04:48 | NUR ---
PRN ZOFRAN 4 MG PO ADMINISTRATION Pt reports mild to moderate nausea. Denies vomiting. Safety measures in place. 1:1 sitter by bedside. Will continue to monitor.
--- NOTE | 2017-06-23 04:48 | NUR ---
PRN ATIVAN 1 MG PO ADMINISTRATION Pt has CIWA 10, appears fidgety, and has moderate anxiety. Safety measures in place. 1:1 sitter at bedside. Will continue to monitor.
--- NOTE | 2017-06-23 05:18 | NUR ---
PRN ZOFRAN REASSESSMENT Pt is laying in bed with eyes closed. Respirations 18, even and unlabored. 1:1 sitter at bedside. Safety measures in place. Will continue to monitor.
--- NOTE | 2017-06-23 05:48 | NUR ---
PRN ATIVAN 1 MG REASSESSMENT CIWA reassessment deferred d/t pt laying in bed with eyes closed, to be assessed only while awake per MD orders. Respirations 18, even and unlabored. 1:1 sitter at bedside. Safety measures in place. Will continue to monitor
--- NOTE | 2017-06-23 07:16 | NUR ---
END OF SHIFT Pt is a 32 y/o male admitted on 06/22/17 for ETOH withdrawal. Pt was dependent on vodka 2-3 pints daily for one month. Pt is full code, allergic to penicillins and aspirin, NPO except medications, and fall and seizure precautions. Pt has hx of seizure r/t DM, not withdrawal. Pt reports PMH of DM type 1, HTN, asthma, anxiety, depression. Pt is on 1:1 with sitter d/t fall precautions. Pt will start a 5 day Ativan taper on 06/23/17. Pt has IVF NS at 125 mL/hour. No redness, pain, swelling at IV site in right forearm. Pt presented with moderate anxiety, mild to moderate nausea, tremors, sweats, moderate flushing, hiccups, slight irritation, restlessness, photosensitivity, and headache. Had one episode of vomiting at approximately 2320. Scheduled medications, x 1 Ativan IV (2020), Ativan 1 mg PO (447), and PRNs Zofran PO x 2 (1931 and 447), Zofran inj (2326), Bentyl and Benadryl (2043) administered, effective in S/S of withdrawal AEB CIWA went from 14 to 10 and pt stated improvement of symptoms overall. Last BS 127, scheduled Levemir 22 units administered per orders. No S/S of altered glucose metabolism. Pt slept 5 hours. intake 1300 ml, void x 2, stool x 0. Last vitals: BP 138/89, P 90, R 18, 02 97%, T 97.8, PA 0/10. Safety measures in place. Pts needs have been met. Endorsed to day shift nurse.
--- NOTE | 2017-06-23 07:30 | NUR ---
START OF SHIFT Pt 32 y/o male admitted for etoh dependence. Pt received in room on bed awake watching television with sitter 1:1 for safety. Pt alert and oriented to name, place, and time. Perrla. Skin warm and moist to touch. Respirations even and unlabored. Pt appeared anxious this morning. Pt with peripheral IV on right arm 22g infusing NS @ 150ml/hr and is tolerating well, with no redness or infiltration noted on IV site. It was reported that pt slept for 5 hours last night. Bed on lowest position side rails x2 up for safety. Call light within reach. No distress noted at this time.
[2017-06-23] MEDS: BLOOD SUGAR DIAGNOSTIC 1 EACH STRIP VI SCH ×4 (07:48→21:15)
[2017-06-23 07:52] LABS: CREATININE 0.8 mg/dL (0.6-1.3); PHOSPHOROUS 1.9 mg/dL (2.5-4.9); POTASSIUM 4.2 mmol/L (3.5-5.1)
[2017-06-23 08:00] VITALS: BP 145/84
[2017-06-23] MEDS: FOLIC ACID 1 MG TABLET PO SCH (08:06)
[2017-06-23] MEDS: THIAMINE HCL 100 MG TABLET PO SCH (08:06)
[2017-06-23] MEDS: LORAZEPAM 1 MG TABLET PO SCH ×4 (08:06→21:11)
[2017-06-23] MEDS: PANTOPRAZOLE SODIUM 40 MG TABLET.DR PO SCH (08:06)
[2017-06-23] MEDS: GABAPENTIN 300 MG CAPSULE PO SCH ×3 (08:06→21:11)
[2017-06-23] MEDS: SERTRALINE HCL 100 MG TABLET PO SCH (08:07)
[2017-06-23] MEDS: MULTIVITAMINS,THERAPEUTIC TABLET PO SCH (08:07)
[2017-06-23] MEDS: METOPROLOL TARTRATE 50 MG TABLET PO SCH ×2 (08:07→21:11)
[2017-06-23 08:11] LABS: HEPATITIS B SURFACE AG Negative (Negative)
[2017-06-23] MEDS: INSULIN DETEMIR 300 UNIT/3 ML CARTRIDGE SQ SCH ×2 (08:14→21:19)
[2017-06-23] MEDS ORDERED: TUBERCULIN,PURIF.PROT.DERIV. 5 TU/0.1 ML TEST ID ONE (09:00)
--- NOTE | 2017-06-23 09:15 | NUR ---
DEBBY FAULKNER Pt with ciwa =5. MD on unit to see pt. Addendum: 06/23/17 at 1050 by SKY HAMILTON RN time correction >>[id number]
--- NOTE | 2017-06-23 09:20 | NUR ---
PRN Pt with ciwa=8. Pt observed with perspiration on forehead, anxious and restless. Ativan po prn per MD order given and tolerated well.
--- NOTE | 2017-06-23 10:17 | NUR ---
Provided education to patient regarding ordered consistent carb. diet. Verbalized importance of not consuming drinks and snacks not adherent to ordered diet. Encouraged patient to request snacks from dietary staff. Patient verbalized understanding and stated he will be compliant.
[2017-06-23 12:59] VITALS: BP 147/90
[2017-06-23] MEDS ORDERED: INFLUENZA VACCINE 2017-2018 0.5 ML DISP.SYRIN IM ONE (13:00)
[2017-06-23] MEDS ORDERED: PNEUMOCOCCAL 23-VAL P-SAC VAC 0.5 ML VIAL IM ONE (13:00)
[2017-06-23] MEDS: INSULIN REGULAR, HUMAN 300 UNIT/3 ML VIAL SQ PRN ×2 (13:27→21:17)
[2017-06-23] MEDS: CLONIDINE HCL 0.1 MG TABLET PO PRN (15:18)
--- NOTE | 2017-06-23 15:18 | NUR ---
PRN Pt states feels anxious and sweaty. pw=197/72. Catapres po prn per MD order given and tolerated well.
--- NOTE | 2017-06-23 16:18 | NUR ---
DEBBY FAULKNER Pt observed in room watching television on bed. No distress noted at this time.
[2017-06-23] MEDS ORDERED: NEUTRA PHOS PACKET PO ONE (17:00)
[2017-06-23 17:19] VITALS: BP 140/85
--- NOTE | 2017-06-23 17:33 | NUR ---
PRN Pt with ciwa=8. made aware with new orders awaiting and will give to pt.
[2017-06-23] MEDS ORDERED: LORAZEPAM 1 MG TABLET PO PRN ×2 (17:45)
[2017-06-23] MEDS ORDERED: LORAZEPAM 2 MG/1 ML VIAL IV ONE (18:00)
--- NOTE | 2017-06-23 18:33 | NUR ---
PRN EVAL Pt with ciwa=3. Pt observed on bed laying watching television.
--- NOTE | 2017-06-23 18:34 | NUR ---
END OF SHIFT Pt 32 y/o male admitted for etoh dependence. Pt alert and oriented to name, place, and time. Perrla. Skin warm and moist to touch. Pt observed mostly isolative to room throughout the day. Pt with peripheral IV on right arm intact and inplace, with no redness or infiltration, and i infusing NS @ 150mL/ hr , and is tolerateing well. Pt with sitter to monitor for safety. Bed on lowest position with side rails x2 up for safety. Call light within reach. No distress noted at this time.
--- NOTE | 2017-06-23 19:15 | NUR ---
Start of Shift Note: Patient is a 32 y/o male admitted 06/22/17 for ETOH dependence. Patient reported drinking 2-3 pints of Vodka daily for 1 month. Patient has PMHx of DM II, HTN, Asthma, Anxiety, & Depression. No Hx of Seizures noted. Patient is on a Controlled Carbohydrate diet with allergies to Penicillins & Aspirins. Patient has a 22 gauge peripheral IV on right forearm with running 0.9% NS at 150 cc/hr. Patient is on a 5-day Ativan taper and tolerating well. Patient is on a 1:1 supervision for safety. Patient is alert & oriented x4. No shortness of breath noted. Respiration even & unlabored. Abdomen soft & non-distended. No nausea/vomiting noted. Patient denies any pain & discomfort. Slight anxiety noted. Denies any hallucinations. Hand tremors felt but not seen. Safety measures in place. Bed locked in lowest position. Both side rails up. Call light within pt's reach. Will continue to monitor patient.
[2017-06-23 20:00] VITALS: BP 120/76
[2017-06-23] MEDS: QUETIAPINE FUMARATE 25 MG TABLET PO PRN (21:11)
--- NOTE | 2017-06-23 21:11 | NUR ---
PRN Seroquel Patient requesting for medication to help him sleep. PRN Seroquel administered as ordered. Will continue to monitor patient.
--- NOTE | 2017-06-23 22:11 | NUR ---
PRN Reassessment PRN medication effective. Patient asleep in bed and appears comfortable. No s/s of distress noted. Respiration even & unlabored. Pt has 1:1 sitter for safety. Will continue to monitor patient.
[2017-06-24] VITALS: BP 110/65
[2017-06-24 04:00] VITALS: BP 112/73
[2017-06-24] MEDS: IV NS 1000 ML 1,000 ML IV PRN (06:00)
--- NOTE | 2017-06-24 07:31 | NUR ---
End of Shift Note: Patient had an uneventful night. Patient has IV access on right forearm with running 0.9%NS @ 150cc/hr. Pt continues on a 1:1 sitter for safety. Patient still noted unsteady during ambulating. Pt continues on his Ativan taper and tolerating well. Last CIWA noted is 3 @ 1999. Pt received PRN Seroquel for sleep and was effective. Patient is alert & oriented x4. No s/s of distress noted. Patient remained stable and vitals WNL. Pt was able to sleep for a total of 7 hours. Pt consumed 1190ml of fluids. Voided 3x with no bowel movement. Encourage pt to increase fluid intake. All needs attended & met. Safety measures in place. Will continue to monitor patient.
--- NOTE | 2017-06-24 07:45 | NUR ---
START OF SHIFT Rcvd endorsement from ongoing nurse, client is in room, he is a/o to name, place, situation, he presents with anxious mood, flat affect, fine tremors, and flushed face, he is fully ambulatory. Client's bedside with open chocolates, sugary cereal and x open cartoons of milk, educate client on importance of adherence to diabetic diet, he stated "I have not eaten those foods." He reports anxiety, difficulty sleeping, restless legs, decreased appetite, fatigue, and chills. Peripheral IV on R forearm, 22G intact/patent, Nacl 0.9% running at prescribed rate, client tolerating well. Encourage client to attend group therapy for skills to maintain sober, he verbalized understanding and said, "I will try to go to groups." Encourage client to increase PO fluid intake as tolerated to facilitate detox. Client is a 32 yo male, admitted to [facility] for withdrawal from alcohol. He is on 5 day Ativan taper (day 2), tolerating well with no ASE. Last CIWA 3 @ 0400. PRN Seroquel 50mg for inability to sleep, he slept 7 hrs. Client reported allergy to PCN, , full code, diabetic diet. Client denies a hx of withdrawal-induced seizure. Side rails x 2 up/padded, bed in lowest/lock position. Call light within reach.
[2017-06-24 08:00] VITALS: BP 133/81
[2017-06-24] MEDS: BLOOD SUGAR DIAGNOSTIC 1 EACH STRIP VI SCH ×4 (08:13→20:26)
[2017-06-24] MEDS: INSULIN REGULAR, HUMAN 300 UNIT/3 ML VIAL SQ PRN ×4 (08:15→20:37)
--- NOTE | 2017-06-24 08:15 | NUR ---
PRN Humulin R insulin 9 units per sliding scale, blood glucose 274. Breakfast at bedside.
[2017-06-24] MEDS: SERTRALINE HCL 100 MG TABLET PO SCH (08:16)
[2017-06-24] MEDS: GABAPENTIN 300 MG CAPSULE PO SCH ×3 (08:16→20:30)
[2017-06-24] MEDS: PANTOPRAZOLE SODIUM 40 MG TABLET.DR PO SCH (08:16)
[2017-06-24] MEDS: METOPROLOL TARTRATE 50 MG TABLET PO SCH ×2 (08:16→20:30)
[2017-06-24] MEDS: LORAZEPAM 1 MG TABLET PO SCH ×3 (08:16→20:29)
[2017-06-24] MEDS: FOLIC ACID 1 MG TABLET PO SCH (08:17)
[2017-06-24] MEDS: MULTIVITAMINS,THERAPEUTIC TABLET PO SCH (08:17)
[2017-06-24] MEDS: THIAMINE HCL 100 MG TABLET PO SCH (08:17)
[2017-06-24] MEDS: INSULIN DETEMIR 300 UNIT/3 ML CARTRIDGE SQ SCH ×2 (08:22→20:37)
[2017-06-24 08:43] LABS: CREATININE 0.8 mg/dL (0.6-1.3); MAGNESIUM 1.7 mg/dL (1.8-2.4); PHOSPHOROUS 1.9 mg/dL (2.5-4.9); POTASSIUM 3.6 mmol/L (3.5-5.1)
[2017-06-24] MEDS: DICYCLOMINE HCL 20 MG TABLET PO PRN ×2 (09:58→16:26)
[2017-06-24] MEDS: CLONIDINE HCL 0.1 MG TABLET PO PRN ×2 (09:59→16:26)
--- NOTE | 2017-06-24 09:59 | NUR ---
PRN Clonidine 0.1mg PO for increased BP 143/92, Bentyl for abdominal spasms PO will continue to monitor. Call light within reach.
[2017-06-24] MEDS ORDERED: NEUTRA PHOS PACKET PO ONE (10:00)
[2017-06-24] MEDS ORDERED: POTASSIUM CHLORIDE 10 MEQ CAPSULE.SA PO ONE (10:00)
[2017-06-24] MEDS ORDERED: MAGNESIUM OXIDE 400 MG TABLET PO ONE (10:00)
--- NOTE | 2017-06-24 10:59 | NUR ---
Reassessment PRN Clonidine 0.1mg PO, BP 122/84, client reports relief from abdominal spasms, Bentyl effective.
[2017-06-24] MEDS ORDERED: OXCARBAZEPINE 150 MG TABLET PO ONE (12:00)
[2017-06-24 12:30] VITALS: BP 127/80
--- NOTE | 2017-06-24 12:57 | NUR ---
PRN Humulin R insulin 2 units per sliding scale, blood glucose 134. Luncht at bedside.
[2017-06-24] MEDS: IBUPROFEN 400 MG TABLET PO PRN ×2 (12:59→20:30)
--- NOTE | 2017-06-24 12:59 | NUR ---
PRN Motrin 400mg PO, Maalox suspension 30mL PO administered for pain on abdomen area 6/10 and hearburn respectively, will continue to monitor. Call light within reach.
--- NOTE | 2017-06-24 13:45 | NUR ---
Activity Group Note: Client did not attend.
--- NOTE | 2017-06-24 13:59 | NUR ---
Reassessment PRN Motrin 400mg PO, Maalox suspension 30mL PO, client reports feeling a little bit better from pain on abdomen area 2/10, but tolerable and no more heartburn.
[2017-06-24] MEDS: CLONIDINE HCL 0.1 MG TABLET PO SCH ×2 (14:07→20:29)
--- NOTE | 2017-06-24 16:26 | NUR ---
PRN Clonidine 0.1mg PO for increased BP 143/91, Bentyl for abdominal spasms PO, and Tylenol 650mg PO for generalized body aches 04/29, will continue to monitor. Call light within reach.
--- NOTE | 2017-06-24 16:32 | NUR ---
PRN Humulin R insulin 9 units per sliding scale, blood glucose 271. Client is not compliant with diabetic diet, he has been eating snacks, despite education on importance on adherence to his diet.
[2017-06-24 16:43] VITALS: BP 143/91
--- NOTE | 2017-06-24 17:26 | NUR ---
Reassessment PRN Clonidine 0.1mg PO BP 126/83, he reports relief from abdominal spasms and generalized body aches 0/10, Bentyl 20mg and Tylenol 650mg PO effective. Call light within reach.
[2017-06-24] MEDS: HYDROXYZINE PAMOATE 25 MG CAPSULE PO PRN (17:28)
--- NOTE | 2017-06-24 17:28 | NUR ---
PRN Vistaril 25mg PO for anxiety, manifested by pacing around the room. Will continue to monitor, call light within reach.
--- NOTE | 2017-06-24 18:28 | NUR ---
Reassessment PRN Vistaril 25mg PO, client sttaes, "I feel a little bit better." Client was able to join peers at the cafeteria for dinner.
--- NOTE | 2017-06-24 19:00 | NUR ---
Start of Shift Patient Received. Patient is in activities room participating in group activities. Patient is a 32 year old female, admitted on 06/22/17 for ETOH Dependence. Patient is currently Receiving a 5 day Ativan taper. Patient verbalizes allergies to PCN and Aspirin, wishes to be full code, following a CCHO diet, placed on fall seizure precautions, with skin noted intact. Patient is currently receiving IV Fluids with 22g to the Right Forearm NaCl 150ml/hr. Patients past medical history of DM type I with insulin coverage, HTN, Asthma, Anxiety, Depression. Per endorsement, patient received coverage x3 as ordered with last BS noted to be 271 with 9 units ordered. Patient received multiple PRN medications throughout the shift. Patient noted to be non compliant with diet. All needs attended to promptly. Will continue plan of care as ordered.
--- NOTE | 2017-06-24 19:08 | NUR ---
END OF SHIFT Endorsed client to incoming nurse, client is a 32 yo male, admitted to [facility] for withdrawal from alcohol. He is on 5 day Ativan taper (day 2), tolerating well with no ASE. Last CIWA 8 @ 1600. Peripheral IV on R forearm, 22G intact/patent, Nacl 0.9% running at prescribed rate, client tolerating well. PRN Humulin R insulin 9 units per sliding scale, blood glucose 274 @ 0815, PRN Humulin R insulin 2 units per sliding scale, BG 134 @ 1257, PRN Humulin R insulin 9 units per sliding scale, blood glucose 271 @ 1632. PRN Clonidine 0.1mg PO for increased BP 143/92, Bentyl for abdominal spasms, PRN Motrin 400mg PO, Maalox suspension 30mL PO for pain on abdomen area 02/27, PRN Clonidine 0.1mg PO for increased BP 143/91, Bentyl for abdominal spasms PO, PRN Vistaril 25mg PO for anxiety all noted effective. Additional education regarding diabetic diet and adherence needed. Client consumes 100% of meals, plus snacks. Adequate fluid PO intake 3013mL. Client compliant with 1/3 og group therapy. Client reported allergy to PCN, ASA, full code, diabetic diet. Client denies a hx of withdarwal-induced seizure. Side rails x 2 up/padded, bed in lowest/lock position. Call light within reach.
--- NOTE | 2017-06-24 20:00 | NUR ---
MD Communication: IV site noted by primary nurse to be red and edematous. Dr Grubbs contacted and new order received to discontinue IV site and fluids. Pt denies N/V/D symptoms and has appropriate dietary/fluid intake.
[2017-06-24 20:28] VITALS: BP 131/82
[2017-06-24] MEDS: OXCARBAZEPINE 150 MG TABLET PO SCH (20:30)
[2017-06-24] MEDS: QUETIAPINE FUMARATE 25 MG TABLET PO PRN (20:30)
--- NOTE | 2017-06-24 20:40 | NUR ---
PRN Medication Administration Patient is verbalizing increased pain in shoulders 5/10 and increased anxiety causing inability of falling asleep. PRN Motrin and Seroquel administered as per ordered. Will continue to monitor.
--- NOTE | 2017-06-24 21:45 | NUR ---
PRN Medication Reassessment Patient noted in hallway requesting smoking pass and is able to verbalize pain has subsided. Patient is able to verbalize "Im just going to go smoke one more time then try to go to sleep." PRN medications noted to be effective. Will continue to monitor.
[2017-06-25] VITALS: BP 135/92
[2017-06-25 04:43] VITALS: BP 122/70
--- NOTE | 2017-06-25 07:15 | NUR ---
End of Shift Patient is in bed sleeping. Breathing even and non labored. No signs of pain or discomfort noted. Patient is a 32 year old male, admitted on 06/22/17 for ETOH Dependence and continues on a 5 day Ativan taper. Patient verbalizes allergies to PCN and Aspirin, full code, following a CCHO diet, placed on fall seizure precautions, with skin noted intact. Patients IV fluids discontinued as per MD orders due to patient tolerating fluids by mouth well. Patients past medical history of DM type I with insulin coverage, HTN, Asthma, Anxiety, Depression. Patient received PRN Motrin for shoulder pain of 01/27 and PRN Seroquel for sleep. Both PRN medications noted to be effective. Blood sugar prior to bedtime noted to be 261 with 9 units of insulin give. Patient noted to be non compliant with diet. Last noted CIWA 7. Patient slept a total of 5 hours. All needs attended to promptly. Will endorse to continue plan of care as ordered. Addendum: 06/25/17 at 0716 by BHAKTI WRIGHT LVN Amended: Links added.
--- NOTE | 2017-06-25 07:32 | NUR ---
BEGINNING OF SHIFT Patient endorsement report received from fisheries manager nurse, all pertinent information discussed. patient is a 32 year old male admitted on: 06/22/2017 with admitting Dx: etoh dependence. patient with DM 1, will monitor blood sugar closely as ordered. Patient currently with ongoing 5 day taper as ordered and is scheduled to begin day: 3 of taper Per fisheries manager patient patient received PRN seroquel and motrin, per fisheries manager medications were effective, patient slept for 5 hours. patient with last ciwa score of: 7. patient received awake, alert and oriented x4, educated regarding plan of care for the day and medication regimen with good verbal understanding. Safety measures in place. call light kept with in reach, will continue to monitor.
--- NOTE | 2017-06-25 07:35 | NUR ---
BLOOD GLUCOSE patients blood glucose: 476, notified Dr. Grubbs, per MD administer insulin as per sliding scale and scheduled due medications.
[2017-06-25] MEDS: BLOOD SUGAR DIAGNOSTIC 1 EACH STRIP VI SCH ×4 (07:39→20:54)
[2017-06-25 08:03] VITALS: BP 121/78
[2017-06-25] MEDS: THIAMINE HCL 100 MG TABLET PO SCH (08:20)
[2017-06-25] MEDS: OXCARBAZEPINE 150 MG TABLET PO SCH (08:20)
[2017-06-25] MEDS: MULTIVITAMINS,THERAPEUTIC TABLET PO SCH (08:20)
[2017-06-25] MEDS: METOPROLOL TARTRATE 50 MG TABLET PO SCH ×2 (08:20→20:45)
[2017-06-25] MEDS: SERTRALINE HCL 100 MG TABLET PO SCH (08:20)
[2017-06-25] MEDS: PANTOPRAZOLE SODIUM 40 MG TABLET.DR PO SCH (08:21)
[2017-06-25] MEDS: CLONIDINE HCL 0.1 MG TABLET PO SCH ×3 (08:21→20:45)
[2017-06-25] MEDS: LORAZEPAM 1 MG TABLET PO SCH ×2 (08:21→14:15)
[2017-06-25] MEDS: GABAPENTIN 300 MG CAPSULE PO SCH (08:21)
[2017-06-25] MEDS: FOLIC ACID 1 MG TABLET PO SCH (08:21)
[2017-06-25] MEDS: INSULIN DETEMIR 300 UNIT/3 ML CARTRIDGE SQ SCH ×2 (08:26→20:52)
--- NOTE | 2017-06-25 08:26 | NUR ---
INSULIN ADMINISTRATION Patient received 15 units of regular insulin as per sliding scale for blood glucose of 476, also administered 22 units of Levemir as per MD orders. Will continue to monitor closely, safety measures in place. Patient also educated regarding diabetic diet.
[2017-06-25] MEDS: INSULIN REGULAR, HUMAN 300 UNIT/3 ML VIAL SQ PRN ×4 (08:27→20:50)
[2017-06-25 08:56] LABS: CREATININE 0.9 mg/dL (0.6-1.3); MAGNESIUM 1.6 mg/dL (1.8-2.4); PHOSPHOROUS 3.9 mg/dL (2.5-4.9); POTASSIUM 4.6 mmol/L (3.5-5.1)
[2017-06-25] MEDS: MAGNESIUM OXIDE 400 MG TABLET PO SCH ×2 (10:22→20:44)
[2017-06-25] MEDS ORDERED: ACAM333T8 PO (12:48)
[2017-06-25 13:19] VITALS: BP 118/71
[2017-06-25] MEDS: GABAPENTIN 400 MG CAPSULE PO SCH ×2 (14:14→20:44)
[2017-06-25] MEDS ORDERED: OXCARBAZEPINE 150 MG TABLET PO ONE (15:00)
--- NOTE | 2017-06-25 15:58 | NUR ---
THerapist encouraged client to attend group today to meet other people and feel connected to support. Client agreed to attend.
[2017-06-25 17:34] VITALS: BP 118/84
--- NOTE | 2017-06-25 18:49 | NUR ---
END OF SHIFT Patient alert and oriented x4, vital signs were stable during shift. Patient compliant with therapeutic plan of care during shift. Patient continues on day 3 of 5 day ativan taper as ordered, well tolerated, no ASE noted. 0900 assessment patient presented with: tremors that can be felt but not seen, anxiety, and mild agitation with ciwa score of: 5; 1300 assessment patient presented with: tremors that can be felt but not seen, mild anxiety an dmild agitation with ciwa score of: 3; 1700 assessment patient presented with: tremors that can be felt but not seen, mild anxiety, and mild agitation with ciwa score of: 3. Detox medication effective at reducing withdrawal symptoms. Patient compliant with plan of care. Blood sugar monitored closely during shift and administered regular insulin as per sliding scale as ordered, well tolerated. Patient encouraged compliance with diabetic diet with good verbal understanding. Patients magnesium was replaced as MD orders. Patients PPD read during shift, negative. encouraged to attend group therapies/sessions to learn new coping skills to prevent relapse. Patient denies SI/HI. Patient encouraged adequate PO fluid intake as tolerated. Patient encouraged adequate PO fluid intake as tolerated. Safety measures in place. call light kept with in reach, safety measures in place. will continue to monitor closely. patient endorsed to night club manager nurse, all pertinent information discussed.
--- NOTE | 2017-06-25 19:15 | NUR ---
Start of Shift Note: Patient is a 32 y/o male admitted 06/22/17 for ETOH dependence. Patient reported drinking 2-3 pints of Vodka daily for 1 month. Patient has PMHx of DM II with insulin coverage, HTN, Asthma, Anxiety, & Depression. No Hx of Seizures noted. Patient is on a Controlled Carbohydrate diet with allergies to Penicillins & Aspirins. Patient is on a 5-day Ativan taper and tolerating well. Last CIWA is 3. No PRN medications given during day shift. Mg of 1.6 noted and was replaced. Received patient alert & oriented x4. Patient is ambulatory with a steady gait. No shortness of breath noted. Respiration even & unlabored. Abdomen soft & non-distended. No nausea/vomiting noted. Patient denies any pain & discomfort. Slight anxiety noted. Denies any hallucinations. Hand tremors felt but not seen. Safety measures in place. Bed locked in lowest position. Both side rails up. Call light within pt's reach. Will continue to monitor patient.
[2017-06-25 20:00] VITALS: BP 132/92
[2017-06-25] MEDS: OXCARBAZEPINE 300 MG TABLET PO SCH (20:45)
[2017-06-25] MEDS: QUETIAPINE FUMARATE 25 MG TABLET PO PRN (20:45)
--- NOTE | 2017-06-25 20:45 | NUR ---
PRN Seroquel Patient has trouble sleeping and requesting for medication to help him sleep. PRN Seroquel administered as ordered. Will continue to monitor patient.
[2017-06-25] MEDS ORDERED: LORAZEPAM 1 MG TABLET PO SCH (21:00)
--- NOTE | 2017-06-25 22:00 | NUR ---
Dietary Non-Compliance & Education: Primary nurse (Christen) reported HS Accu-Chek blood glucose resulted at 450mg/dL. Primary nurse administered Humulin-R according to sliding scale, along with scheduled Levemir. Dr Grubbs made aware of blood glucose results and patient placed on room restriction as per Dr Grubbs. Patient was found with empty snack wrappers hidden in drawers in room. Patient reports that he had two servings of the catered food that was brought up to the unit. Charge nurse (Mary) reinforced education on dietary compliance with CC Diet. Patient verbalized understanding and agreement.
--- NOTE | 2017-06-25 23:00 | NUR ---
PRN Reassessment Patient asleep in bed and appears comfortable. PRn medication effective. No s/s of distress noted. Safety measures in place. Will continue to monitor patient.
[2017-06-26 04:00] VITALS: BP 127/86
--- NOTE | 2017-06-26 07:09 | NUR ---
End of Shift Note: Patient had an uneventful night. Pt continues on his Ativan taper and tolerating well. Last CIWA noted is 2 @ 2000. Pt received PRN Seroquel for sleep and medication was effective. Patient had an episode of hyperglycemia with a Blood glucose level of 450mg/dl @ 2100. Pt received 15 units per sliding scale and Levemir as scheduled. Patient was noted to be non-compliant with diet. MD was notified and pt was placed on room restriction per MDs order. Pt is not allowed to have snacks or drinks. Patient is alert & oriented x4. No s/s of distress noted. Patient remained stable and vitals WNL. Pt was able to sleep for a total of 7 hours. Pt consumed 1250ml of fluids. Voided 3x with no bowel movement. Encourage pt to increase fluid intake. All needs attended & met. Safety measures in place. Will continue to monitor patient.
[2017-06-26] MEDS: BLOOD SUGAR DIAGNOSTIC 1 EACH STRIP VI SCH ×4 (07:35→20:46)
--- NOTE | 2017-06-26 07:39 | NUR ---
BEGINNING OF SHIFT Patient endorsement report received from warehouse shift supervisor nurse, all pertinent information discussed. patient is a 32 year old male admitted on: 06/22/2017 with admitting Dx: etoh dependence. patient with DM 1, will monitor blood sugar closely as ordered. Patient currently with ongoing 5 day taper as ordered and is scheduled to begin day: 3 of taper Per warehouse shift supervisor patient patient received PRN seroquel and motrin, per warehouse shift supervisor medications were effective, patient slept for 5 hours. patient with last ciwa score of: 7. patient received awake, alert and oriented x4, educated regarding plan of care for the day and medication regimen with good verbal understanding. Safety measures in place. call light kept with in reach, will continue to monitor. Addendum: 06/26/17 at 0743 by DAVID ZEPEDA LVN CLARIFICATION OF NOTE: Patient endorsement report received from warehouse shift supervisor nurse, all pertinent information discussed. patient is a 32 year old male admitted on: 06/22/2017 with admitting Dx: etoh dependence. patient with DM 1, will monitor blood sugar closely as ordered, patient placed under very close observation d/t non compliance with diet. Will educate regarding diabetic diet, and diet compliance. Patient currently with ongoing 5 day taper as ordered and is scheduled to begin day: 4 of taper Per warehouse shift supervisor patient patient received PRN seroquel, per warehouse shift supervisor medications were effective, patient slept for 7 hours. patient with last ciwa score of: 2. patient received awake, alert and oriented x4, educated regarding plan of care for the day and medication regimen with good verbal understanding. Safety measures in place. call light kept with in reach, will continue to monitor.
[2017-06-26 08:02] VITALS: BP 110/71
[2017-06-26] MEDS: GABAPENTIN 400 MG CAPSULE PO SCH ×3 (08:24→20:41)
[2017-06-26] MEDS: OXCARBAZEPINE 300 MG TABLET PO SCH ×2 (08:24→20:40)
[2017-06-26] MEDS: METOPROLOL TARTRATE 50 MG TABLET PO SCH ×2 (08:24→20:42)
[2017-06-26] MEDS: MULTIVITAMINS,THERAPEUTIC TABLET PO SCH (08:24)
[2017-06-26] MEDS: FOLIC ACID 1 MG TABLET PO SCH (08:25)
[2017-06-26] MEDS: PANTOPRAZOLE SODIUM 40 MG TABLET.DR PO SCH (08:25)
[2017-06-26] MEDS: CLONIDINE HCL 0.1 MG TABLET PO SCH ×3 (08:25→20:41)
[2017-06-26] MEDS: LORAZEPAM 1 MG TABLET PO SCH ×3 (08:25→20:41)
[2017-06-26] MEDS: INSULIN DETEMIR 300 UNIT/3 ML CARTRIDGE SQ SCH ×2 (08:30→20:50)
[2017-06-26] MEDS: INSULIN REGULAR, HUMAN 300 UNIT/3 ML VIAL SQ PRN ×4 (08:30→20:48)
[2017-06-26] MEDS: THIAMINE HCL 100 MG TABLET PO SCH (08:58)
[2017-06-26] MEDS: SERTRALINE HCL 100 MG TABLET PO SCH (08:58)
[2017-06-26] MEDS ORDERED: LORAZEPAM 1 MG TABLET PO SCH (09:00)
[2017-06-26 13:45] VITALS: BP 118/72
[2017-06-26 17:00] VITALS: BP 106/66
[2017-06-26] MEDS: HYDROXYZINE PAMOATE 25 MG CAPSULE PO PRN (17:36)
--- NOTE | 2017-06-26 17:36 | NUR ---
PRN VISTARIL Patient c/o increase in anxiety, provided with non pharmacological interventions with no relief, patient administered Vistaril as ordered, will monitor effectiveness of medication.
--- NOTE | 2017-06-26 18:36 | NUR ---
VISTARIL REASSESSMENT Patient reports medication effective, feels less anxious, will continue to monitor. safety measures in place.
--- NOTE | 2017-06-26 19:05 | NUR ---
END OF SHIFT Patient alert and oriented x4, vital signs were stable during shift. Patient compliant with therapeutic plan of care during shift, during shift patient was under close observation for compliance with diet as ordered, patient compliant with diet as ordered during shift. Patient continues on day 4 of 5 day Ativan taper as ordered, well tolerated, no ASE noted. 0900 assessment patient presented with: barely sweating, anxiety and mild agitation with ciwa score of: 4; 1300 assessment patient presented with: mild agitation and anxiety with ciwa score of: 3; 1700 assessment patient presented with: mild agitation and anxiety with ciwa score of:3. Detox medication effective at reducing withdrawal symptoms. Patient received PRN: Vistaril during shift, medication effective one hour post administration. Patient compliant with plan of care. Blood sugar monitored closely during shift and administered regular insulin as per sliding scale as ordered, well tolerated, Administered Levemir as ordered, well tolerated. Patient encouraged compliance with diabetic diet with good verbal understanding. encouraged to attend group therapies/sessions to learn new coping skills to prevent relapse, noted attending and participating. Patient denies SI/HI. Patient encouraged adequate PO fluid intake as tolerated. Patient encouraged adequate PO fluid intake as tolerated. Safety measures in place. call light kept with in reach, safety measures in place. will continue to monitor closely. patient endorsed to size marker nurse, all pertinent information discussed.
--- NOTE | 2017-06-26 19:15 | NUR ---
Start of Shift Note: Patient is a 32 y/o male admitted 06/22/17 for ETOH dependence. Patient reported drinking 2-3 pints of Vodka daily for 1 month. Patient has PMHx of DM II with insulin coverage, HTN, Asthma, Anxiety, & Depression. No Hx of Seizures noted. Patient is on a Consistent Carbohydrate diet with allergies to Penicillins & Aspirins. Patient is on a 5-day Ativan taper and tolerating well. Last CIWA is 3. Pt was given PRN Vistaril during day shift. Patient is not allowed to have snacks and drinks. Patient is on a strict diabetic diet. Last Blood glucose level is 303 mg/dl. Patient Received patient alert & oriented x4. Patient is ambulatory with a steady gait. No shortness of breath noted. Respiration even & unlabored. Abdomen soft & non-distended. No nausea/vomiting noted. Patient denies any pain & discomfort. Slight anxiety noted. Denies any hallucinations. Hand No hand tremors noted. Safety measures in place. Bed locked in lowest position. Both side rails up. Call light within pt's reach. Will continue to monitor patient.
[2017-06-26 20:00] VITALS: BP 108/70
[2017-06-26] MEDS: QUETIAPINE FUMARATE 25 MG TABLET PO PRN (20:40)
--- NOTE | 2017-06-26 20:40 | NUR ---
PRN Seroquel Patient complaining of inability to fall asleep. Pt requested medication to help him sleep. PRN Seroquel administered as ordered. Will continue to monitor patient.
--- NOTE | 2017-06-26 22:00 | NUR ---
PRn Reassessment PRN medication effective. Patient asleep at this time with no s/s of distress noted. Safety measures in place. Will continue to monitor patient.
[2017-06-27] VITALS: BP 112/65
--- NOTE | 2017-06-27 07:02 | NUR ---
End of Shift Note: Patient had an uneventful night. Pt continues on his Ativan taper and tolerating well. Last CIWA noted is 2 @ 2000. Pt received PRN Seroquel for sleep and medication was effective. Educated pt importance of dietary compliance. Pt is not allowed to have snacks or drinks. Last Blood glucose level is 290mg/dl @ 2100. Pt received 9 units per sliding scale and Levemir as scheduled. Patient is now compliant with dietary compliance. Continue to educate patient. Patient is alert & oriented x4. No s/s of distress noted. Patient remained stable and vitals WNL. Pt was able to sleep for a total of 8 hours. Pt consumed 1355ml of fluids. Voided 2x with 1x bowel movement. Encourage pt to increase fluid intake. All needs attended & met. Safety measures in place. Will continue to monitor patient.
--- NOTE | 2017-06-27 07:03 | NUR ---
Start of Shift Notes; Received patient in his room. Alert and oriented x 4. Verbally responsive. Able to make needs known. Respirations even and unlabored. No SOB noted. Skin warm and dry to touch. Abdomen soft and non-distended. BS (+) in all 4 quadrants. No complains of N/V/D or constipation noted. Voids independently. Ambulatory ad karo with steady gait. Patient is a 32 year old male admitted for ETOH dependence who was placed on a 5-day Ativan taper as ordered. No adverse reactions noted. Has past medical hx of DM, HTN, asthma, anxiety and depression. Prior to admission, patient was using 2-3 pints of Vodka daily x 1 month. Has allergies to PCN and aspirin. FULL CODE. Regular diet. Educated patient on his current plan of care for the day and his medication regimen. Encouraged oral fluid intake and encouraged group participation to learn new skills to prevent relapse. Will continue to monitor closely.
[2017-06-27] MEDS: BLOOD SUGAR DIAGNOSTIC 1 EACH STRIP VI SCH ×4 (07:53→21:57)
[2017-06-27 08:00] VITALS: BP 127/85
[2017-06-27] MEDS: INSULIN DETEMIR 300 UNIT/3 ML CARTRIDGE SQ SCH ×2 (08:05→21:54)
[2017-06-27] MEDS: INSULIN REGULAR, HUMAN 300 UNIT/3 ML VIAL SQ PRN ×5 (08:06→21:59)
[2017-06-27] MEDS: MULTIVITAMINS,THERAPEUTIC TABLET PO SCH (08:08)
[2017-06-27] MEDS: CLONIDINE HCL 0.1 MG TABLET PO SCH ×3 (08:08→21:47)
[2017-06-27] MEDS: GABAPENTIN 400 MG CAPSULE PO SCH (08:08)
[2017-06-27] MEDS: PANTOPRAZOLE SODIUM 40 MG TABLET.DR PO SCH (08:08)
[2017-06-27] MEDS: SERTRALINE HCL 100 MG TABLET PO SCH (08:08)
[2017-06-27] MEDS: OXCARBAZEPINE 300 MG TABLET PO SCH ×2 (08:08→21:47)
[2017-06-27] MEDS: FOLIC ACID 1 MG TABLET PO SCH (08:08)
[2017-06-27] MEDS: METOPROLOL TARTRATE 50 MG TABLET PO SCH ×2 (08:09→21:47)
[2017-06-27] MEDS: THIAMINE HCL 100 MG TABLET PO SCH (08:40)
[2017-06-27] MEDS ORDERED: LORAZEPAM 1 MG TABLET PO SCH (09:00)
[2017-06-27 12:00] VITALS: BP 123/67
[2017-06-27] MEDS ORDERED: GABA-534 PO (14:06)
[2017-06-27] MEDS ORDERED: OXCA300T4 PO (14:06)
[2017-06-27] MEDS ORDERED: SERT100T12 PO (14:06)
[2017-06-27] MEDS ORDERED: HYDR-3895 PO (14:06)
[2017-06-27] MEDS ORDERED: CLON0.1T14 PO (14:06)
[2017-06-27] MEDS ORDERED: PANT40TA2 PO (14:06)
[2017-06-27] MEDS ORDERED: QUET25TA PO (14:06)
[2017-06-27] MEDS ORDERED: ALBU8.5H8 INH (14:06)
[2017-06-27] MEDS: GABAPENTIN 300 MG CAPSULE PO SCH ×2 (14:08→21:46)
[2017-06-27] MEDS ORDERED: GABAPENTIN 400 MG CAPSULE PO SCH (15:00)
--- NOTE | 2017-06-27 15:42 | NUR ---
Endorsed patient: Endorsed patient to receiving nurse. Patient completed his 5-day Ativan taper as ordered. No delayed reactions noted. Taper tolerated well. VS monitored closely. No significant abnormalities noted. Withdrawal symptoms closely monitored. Initial CIWA 4- patient presented with anxiety, fine tremors, sweating and anxiety. Per patient, Ativan has been helping him with his withdrawal symptoms. Last CIWA 3 at 1200. BS monitored closely q AC and HS. On routine Levemir 26U as ordered q 12 hours and with RI coverage per SS. No diabetic reactions noted. No s/s of hypo/hyperglycemia noted. Compliant with care and treatment. Patient adhered to dietary restrictions today. Participated in group and activities. All needs met and attended. Will continue to monitor and endorse patient to incoming nurse for continuity of care.
--- NOTE | 2017-06-27 15:42 | NUR ---
Pt received from previous nurse.
[2017-06-27 16:00] VITALS: BP 129/71
[2017-06-27] MEDS ORDERED: BLOOD SUGAR DIAGNOSTIC 1 EACH STRIP VI ONE (19:15)
--- NOTE | 2017-06-27 19:15 | NUR ---
START OF SHIFT NOTE : Patient is a 32 year old male admitted for ETOH dependence who was placed on a 5-day Ativan taper as ordered. No adverse reactions noted. Has past medical hx of DM, HTN, asthma, anxiety and depression. Has allergies to PCN and aspirin. FULL CODE. Regular diet. Received patient in his room. Alert and oriented x 4. Verbally responsive. Able to make needs known. Respirations even and unlabored. No SOB noted. Skin warm and dry to touch. Abdomen soft and non-distended. BS (+) in all 4 quadrants. No complains of N/V/D or constipation noted. Voids independently. Ambulatory ad karo with steady gait. Educated patient on his current plan of care for the day and his medication regimen. Encouraged oral fluid intake and encouraged group participation to learn new skills to prevent relapse.Last CIWA=3 at 16:00. ACCU-Check done at 19:15, [id number], covered with 15 units SQ Regular Insulin as ordered. Safety measures in place : bed on lowest position with side rails x2 up for safety, call light within reach. Will continue to monitor closely and offer help.
--- NOTE | 2017-06-27 19:20 | NUR ---
End of Shift Endorsement given to nightshift nurse. PT is alert and oriented x4. Pt is in STABLE condition at this time. Remains compliant with medication and diet regimen. All needs have been met, All safety measures in place per hospital policy. Bed in lowest position, side rails up x2, call-light within reach. Will continue to monitor
[2017-06-27 20:00] VITALS: BP 124/77
--- NOTE | 2017-06-28 06:51 | NUR ---
END OF SHIFT NOTE : Patient is a 32 year old male admitted for ETOH dependence who was placed on a 5-day Ativan taper as ordered. No adverse reactions noted. Has past medical hx of DM, HTN, asthma, anxiety and depression. Has allergies to PCN and aspirin. FULL CODE. Regular diet. Pt remains compliant with the treatment plan. No PRNs were given during my shift. V/S remain WNL. RR=16, even and unlabored, lungs clear upon auscultation, abdomen soft and non- distended. Pt denies nausea, vomiting and diarrhea. CIWA taken when pt. was alert during the night, LAST CIWA= 3 at 0400 , [id number] ml, voided x3 , slept 6 hours. Safety measures in place : bed on lowest position with side rails x2 up for safety, call light within reach. Will continue to monitor closely and offer help.
--- NOTE | 2017-06-28 07:46 | NUR ---
START OF SHIFT Received report from night nurse. 32 year old male patient admitted on 06/22/17 for ETOH withdrawals. Pt is A/O x4, reports allergies to Penicillin and Aspirin. Pt is a diabetic type II and despite the continuos diet education, pt remains non-compliant with ordered diet. Verbal and print education provided. Most recent BG is 386 mg/dl and it was covered with 15 units of ordered insulin. Pt slept for 6 hours. Most recent CIWA score is 3. All needs met at this time. Pt is medically cleared for d/c. Will continue to monitor.
[2017-06-28 08:17] VITALS: BP 130/73
[2017-06-28] MEDS: BLOOD SUGAR DIAGNOSTIC 1 EACH STRIP VI SCH (08:23)
[2017-06-28] MEDS: GABAPENTIN 300 MG CAPSULE PO SCH (08:24)
[2017-06-28] MEDS: FOLIC ACID 1 MG TABLET PO SCH (08:24)
[2017-06-28] MEDS: CLONIDINE HCL 0.1 MG TABLET PO SCH (08:24)
[2017-06-28 08:25] VITALS: BP 131/85
[2017-06-28] MEDS: METOPROLOL TARTRATE 50 MG TABLET PO SCH (08:25)
[2017-06-28] MEDS: MULTIVITAMINS,THERAPEUTIC TABLET PO SCH (08:25)
[2017-06-28] MEDS: OXCARBAZEPINE 300 MG TABLET PO SCH (08:25)
[2017-06-28] MEDS: SERTRALINE HCL 100 MG TABLET PO SCH (08:25)
[2017-06-28] MEDS: PANTOPRAZOLE SODIUM 40 MG TABLET.DR PO SCH (08:25)
[2017-06-28] MEDS: THIAMINE HCL 100 MG TABLET PO SCH (08:27)
[2017-06-28] MEDS: INSULIN DETEMIR 300 UNIT/3 ML CARTRIDGE SQ SCH (08:29)
[2017-06-28] MEDS: INSULIN REGULAR, HUMAN 300 UNIT/3 ML VIAL SQ PRN (08:30)
--- NOTE | 2017-06-28 08:43 | NUR ---
BLOOD SUGAR CHECK/MD COMMUNICATION Per orders to check Blood Glucose AC, results are 408 mg/dl. Per sliding scale MD orders to administer 15 units of Regular Insulin & Call MD. In addition, order for Levemir [address] Olivera contacted, and to administer as ordered as well as check again before discharge. Pt education provided on importance of diet compliance and being consistent with ordered diet. Pt verbalizes understanding.
[2017-06-28] MEDS ORDERED: BLOOD SUGAR DIAGNOSTIC 1 EACH STRIP VI ONE (09:30)
--- NOTE | 2017-06-28 09:44 | NUR ---
REPEAT INSULIN CHECK/MD COMMUNICATION Per MD orders, re checked blood glucose after administration of Insulin orders and it is now 446 mg/dl. Dr. Grubbs ordered 10 units of regular insulin. Education re-iterated. Pt to follow up with outpatient with primary MD.
[2017-06-28] MEDS ORDERED: INSULIN REGULAR, HUMAN 300 UNIT/3 ML VIAL SQ ONE (09:45)
--- NOTE | 2017-06-28 10:05 | NUR ---
D/C NOTES Pt is A/O x4. V/S remain WNL. Pt denies SI/HI or hallucinations. Pt shows no s/s of acute withdrawal at this time, and is stable. MD has medically cleared pt for d/c . Education on diabetic diet, Hepatitis C, smoking cessation and medication side effects provided. Pt verbalizes understanding. All pt belongings are in belonging bag, including prescriptions, and home medications. Most recent CIWA 3 related to mild tremors, anxiety and agitation. Refuses PNU vaccination. Pt is being accompanied by CHANNEL WORKER at this time to be transported to rehab. Patient states he has insulin at home and will follow up with primary MD for more refills as needed. Pt education provided on s/s of hypo/hyper glycemia. All needs met. Pt is stable.
== END 2017-06-28 10:05 | disposition home or self-care (01) | DRG 895 ==
LOC: SRC 13:23
PROVIDERS: ADMIT Internal Medicine; ATTEND Internal Medicine
PROC: HZ2ZZZZ Detoxification Services for Substance Abuse Treatment (ICD-10-PCS; 2017-06-22)
PROC: HZ31ZZZ Individual Counseling for Substance Abuse Treatment, Behavioral (ICD-10-PCS; principal; 2017-06-23)
PROC: HZ41ZZZ Group Counseling for Substance Abuse Treatment, Behavioral (ICD-10-PCS; 2017-06-25)
DX: F10.232 Alcohol dependence with withdrawal with perceptual disturbance (principal); E87.2 Acidosis; E87.8 Other disorders of electrolyte and fluid balance, not elsewhere classified; E87.1 Hypo-osmolality and hyponatremia; K70.10 Alcoholic hepatitis without ascites; E10.65 Type 1 diabetes mellitus with hyperglycemia; F32.9 Major depressive disorder, single episode, unspecified; Y90.9 Presence of alcohol in blood, level not specified; Z91.14 Patient's other noncompliance with medication regimen; J45.20 Mild intermittent asthma, uncomplicated; F17.210 Nicotine dependence, cigarettes, uncomplicated; F41.9 Anxiety disorder, unspecified; Z88.6 Allergy status to analgesic agent; Z88.0 Allergy status to penicillin; E86.0 Dehydration; Z91.11 Patient's noncompliance with dietary regimen; Z79.4 Long term (current) use of insulin; E87.6 Hypokalemia; Z79.899 Other long term (current) drug therapy; G47.00 Insomnia, unspecified; I15.9 Secondary hypertension, unspecified; E83.42 Hypomagnesemia; E83.39 Other disorders of phosphorus metabolism
CPT/HCPCS: 36415; 70030-TC; 80307; 83690; 83735; 84100; 85025; 86580; 86592; 86705; 86803; 87340; 87806; 90686; 90732; A4663; G0480; J1815; J2060; J2405; J3411; J7030; Q0162; Q0163